=== PATIENT | male | born 1950 | race Caucasian/White ===

== ENCOUNTER 2018-10-02 08:00 | Outpatient (CLI) | payer MEDICARE ==
[2018-10-02 19:20] LABS: CREATININE,URINE 102.9 mg/dL; MICROALBUM/CREATININE RATIO,UR 56.4 ug/mg (<30.0); MICROALBUMIN,URINE 5.8 mg/dL (0-300.0)
[2018-10-02 19:39] LABS: HB2 TOTAL 10.5 g/dL; HEMOGLOBIN A1C 0.51 g/dL; HEMOGLOBIN A1C % 6.6 % (4.6-6.2)
== END 2018-10-02 23:59 | disposition home or self-care (01) ==
LOC: LAB.S 08:00
PROVIDERS: ATTEND Nurse Practitioner
DX: E11.21 Type 2 diabetes mellitus with diabetic nephropathy (principal)
CPT/HCPCS: 36415; 82043; 82570; 83036; 84443

== ENCOUNTER 2018-11-20 08:00 | Outpatient (CLI) | payer MEDICARE | END 2018-11-20 23:59 | disposition home or self-care (01) | LOC: LAB.S 08:00 | PROVIDERS: ATTEND Nurse Practitioner | DX: E03.9 Hypothyroidism, unspecified (principal) | CPT/HCPCS: 36415; 84443 ==

== ENCOUNTER 2018-12-16 17:25 | Outpatient (CLI) | payer MEDICARE, OTHER | END 2018-12-16 17:26 | disposition critical access hospital (66) | LOC: EMS 17:25 | PROVIDERS: ATTEND Surgery | DX: M25.552 Pain in left hip (principal); M79.652 Pain in left thigh; W01.0XXA Fall on same level from slipping, tripping and stumbling without subsequent striking against object, initial encounter; Y93.01 Activity, walking, marching and hiking; Y92.832 Beach as the place of occurrence of the external cause | CPT/HCPCS: A0425; A0429 ==

== ENCOUNTER 2018-12-16 18:05 | Inpatient (IN) | payer MEDICARE, OTHER ==
--- NOTE | 2018-12-16 18:24 | ED Physician Documentation ---
PD HPI LOWER EXT INJURY - Stated complaint Stated Complaint: FALL - Chief complaint Chief Complaint: Ext Problem - History obtained from History obtained from: Patient - History of Present Illness PD HPI LOW EXT INJURY LOCATION: Left (60-year-old gentleman with history of liver transplant, type 2 diabetes on insulin presents after a slip and fall on the beach landing on his left hip with severe pain and cannot walk but declines pain medications. No other injuries.) Review of Systems Ten Systems: 10 systems reviewed and negative Constitutional: reports: Reviewed and negative Throat: reports: Reviewed and negative Cardiac: reports: Reviewed and negative Respiratory: reports: Reviewed and negative PD PAST MEDICAL HISTORY - Past Medical History Past Medical History: Yes GI: Other (liver transplant) - Past Surgical History Past Surgical History: Yes General: Liver surgery - Present Medications Home Medications: Ambulatory Orders Medication Instructions Recorded Confirmed RX: Tacrolimus 2 mg PO BID 02/07/13 12/16/18 Insulin Glargine [Lantus Solostar] 9 units SQ DAILY 12/16/18 12/16/18 Insulin Lispro [Humalog] 10 unit SUBQ ONCE 12/16/18 12/16/18 Levothyroxine [Synthroid] 0 mcg PO QDAC 12/16/18 12/16/18 RX: Lisinopril 0 mg PO DAILY 12/16/18 12/16/18 - Allergies Allergies/Adverse Reactions: Allergies Allergy/AdvReac Type Severity Reaction Status Date / Time No Known Drug Allergies Allergy Verified 02/12/13 14:25 - Social History Does the pt smoke?: No Smoking Status: Never smoker Does the pt drink ETOH?: No Does the pt have substance abuse?: No - Family History Family history: reports: Non contributory - Immunizations Immunizations are current?: Yes - POLST Patient has POLST: No POLST Status: Full Code PD ED PE NORMAL - Vitals Vital signs reviewed: Yes - General General: Alert and oriented X 3, No acute distress - HEENT HEENT: PERRL, EOMI - Neck Neck: Supple, no meningeal sign, No bony TTP - Cardiac Cardiac: RRR, No murmur - Respiratory Respiratory: No respiratory distress, Clear bilaterally - Abdomen Abdomen: Soft, Non tender - Back Back: No CVA TTP, No spinal TTP - Derm Derm: Normal color, Warm and dry - Extremities Extremities: Other (Left hip is not deformed but he appears uncomfortable and is holding it flexed. It is tender. No pelvic or knee tenderness.) - Neuro Neuro: Alert and oriented X 3, Normal speech Results - Vitals Vitals: Vital Signs - 24 hr 12/16/18 12/16/18 18:07 19:45 Temperature 36.9 C Heart Rate 72 71 Respiratory 14 14 Rate Blood Pressure 122/50 L 128/55 L O2 Saturation 100 100 Oxygen O2 Source Room air - EKG (time done) 1918 Rate: Rate (enter#) (65) Rhythm: NSR [place]: Normal Intervals: Normal VT QRS: Low voltage Ischemia: Normal ST segments Computer interpretation: Agree with computer - Labs Labs: Laboratory Tests 12/16/18 12/16/18 12/16/18 18:45 18:45 18:45 WBC 5.5 RBC 3.24 L Hgb 9.9 L Hct 29.2 L MCV 90.2 MCH 30.5 MCHC 33.8 RDW 15.2 H Plt Count 72 L MPV 9.4 Neut # (Auto) 4.8 Lymph # (Auto) 0.3 L Real # (Auto) 0.2 Eos # (Auto) 0.2 Baso # (Auto) 0.1 Absolute Nucleated RBC 0.00 Nucleated RBC % 0.0 PT 14.0 H INR 1.2 Sodium Potassium Chloride Carbon Dioxide Anion Gap BUN Creatinine Estimated GFR (MDRD) Glucose Calcium Total Bilirubin AST ALT Alkaline Phosphatase Total Protein Albumin Globulin Albumin/Globulin Ratio Lipase Blood Type A NEGATIVE Blood Type Recheck Antibody Screen POSITIVE 12/16/18 12/16/18 18:45 18:55 WBC RBC Hgb Hct MCV MCH MCHC RDW Plt Count MPV Neut # (Auto) Lymph # (Auto) Real # (Auto) Eos # (Auto) Baso # (Auto) Absolute Nucleated RBC Nucleated RBC % PT INR Sodium 141 Potassium 4.3 Chloride 110 Carbon Dioxide 22 Anion Gap 9.0 BUN 41 H Creatinine 1.8 H Estimated GFR (MDRD) 38 L Glucose 143 H Calcium 9.5 Total Bilirubin 0.8 AST 22 ALT 23 Alkaline Phosphatase 65 Total Protein 6.7 Albumin 3.8 Globulin 2.9 Albumin/Globulin Ratio 1.3 Lipase 58 H Blood Type Blood Type Recheck A NEGATIVE Antibody Screen - Rads (name of study) L hip xr Radiology: EMP read contemporaneously (Left hip intertrochanteric fracture) PD MEDICAL DECISION MAKING - ED course ED course: 68-year-old gentleman with hip fracture. 10 years post liver transplant. [place] dai injury. Spoke with the hospitalist here as well as anesthesia (Buster) and orthopedic surgeon (Nay). All feel that the surgery can be done here. Patient would like me to touch base with [facility] and get their opinion as well specifically the liver transplant team which I will. I spoke with Dr Arvind Hernandez at [facility] hepatology Who reviewed his chart and did not think there was any reason he needed to be transferred to [facility]. He did recommend the avoidance of hepatotoxic medications. He confirmed that his platelet count and creatinine are basically at his baseline. Departure - Departure Disposition: 66 [facility] DC/Xfer Clinical Impression: Fracture, intertrochanteric, left femur Qualifiers: Encounter type: initial encounter Fracture type: closed Fracture alignment: nondisplaced Qualified Code(s): S72.145A - Nondisplaced intertrochanteric fracture of left femur, initial encounter for closed fracture Condition: Serious Discharge Date/Time: 12/16/18 20:49
[2018-12-16 18:59] LABS: BASOPHILS # (AUTO) 0.1 10^3/uL (0.0-0.1); BASOPHILS % (AUTO) 0.9 %; EOSINOPHILS # (AUTO) 0.2 10^3/uL (0.0-0.7); EOSINOPHILS % (AUTO) 2.8 %; HGB - HEMOGLOBIN 9.9 g/dL (14.0-18.0); LYMPHOCYTES # (AUTO) 0.3 10^3/uL (1.5-3.5); LYMPHOCYTES % (AUTO) 5.6 %; MEAN CORPUSCULAR HEMOGLOBIN 30.5 pg (27.0-31.0); MEAN CORPUSCULAR HGB CONC 33.8 g/dL (32.0-36.0); MEAN CORPUSCULAR VOLUME 90.2 fL (80.0-94.0); MEAN PLATELET VOLUME 9.4 fL (7.4-11.4); MONOCYTES # (AUTO) 0.2 10^3/uL (0.0-1.0); MONOCYTES % (AUTO) 3.7 %; NEUTROPHILS # (AUTO) 4.8 10^3/uL (1.5-6.6); PLT - PLATELET COUNT 72 10^3/uL (130-450); RED BLOOD COUNT 3.24 10^6/uL (4.70-6.10); RED CELL DISTRIBUTION WIDTH 15.2 % (12.0-15.0); WHITE BLOOD COUNT 5.5 x10^3/uL (4.8-10.8)
[2018-12-16 19:03] LABS: INR 1.2 (0.8-1.2)
[2018-12-16] MEDS ORDERED: HYDROmorphone 1 MG/ML CARPUJECT IVP STA (19:07)
[2018-12-16 19:10] LABS: ALBUMIN 3.8 g/dL (3.2-5.5); ALBUMIN/GLOBULIN RATIO 1.3 (1.0-2.2); BILIRUBIN,TOTAL 0.8 mg/dL (0.2-1.0); CALCIUM 9.5 mg/dL (8.5-10.3); CREATININE 1.8 mg/dL (0.6-1.2); TOTAL PROTEIN 6.7 g/dL (6.7-8.2)
--- NOTE | 2018-12-16 19:22 | XRAY Report ---
Reason: hip inj Procedure Date: 12/16/2018 Accession Number: [id number] / [id number] Procedure: XR - Hip w/Pelvis 2-3V LT CPT Code: FULL RESULT: EXAM: LEFT HIP RADIOGRAPHY EXAM DATE: 12/16/2018 06:45 PM. CLINICAL HISTORY: Hip inj. COMPARISON: ABDOMEN ACUTE 02/12/2013 2:49 PM. TECHNIQUE: 2 views. FINDINGS: Bones: There is an intertrochanteric left femoral fracture with mild acquired coxa vara. Bilateral decreased femoral head neck offset. Joints: Mild bilateral hip osteoarthritis Soft Tissues: Soft tissue edema about the left hip IMPRESSION: 1. Left femoral intertrochanteric fracture with mild acquired coxa vera. 2. Bilateral decreased femoral head neck offset which may be seen in the clinical setting of femoral acetabular impingement. RADIA
[2018-12-16] MEDS ORDERED: ACETAMINOPHEN 325 MG TABLET PO PRN (20:23)
[2018-12-16] MEDS ORDERED: HYDROcod/ACETAM 5/325 MG TABLET PO PRN (20:23)
[2018-12-16] MEDS ORDERED: ZOLPIDEM 5 MG TABLET PO PRN (20:23)
[2018-12-16] MEDS ORDERED: ONDANSETRON 4 MG/2 ML VIAL IVP PRN (20:23)
[2018-12-16] MEDS: MORPHINE 2 MG/ML CARPUJECT IVP PRN (21:13)
[2018-12-16] MEDS: SODIUM CHLORIDE FLUSH 0.9% 10 ML SYRINGE IVP PRN (21:13)
[2018-12-16] MEDS: TACROLIMUS 0.5 MG CAPSULE PO SCH (22:09)
[2018-12-16] MEDS: INSULIN REGULAR HUMAN 100 UNIT/1 ML 10 ML MDV SUBQ SCH (22:10)
[2018-12-16] MEDS ORDERED: LIDOCAINE 2% URO-JET 5 ML SYRINGE UR ONE (22:17)
[2018-12-17] MEDS: INSULIN REGULAR HUMAN 100 UNIT/1 ML 10 ML MDV SUBQ SCH ×3 (00:08→12:19)
[2018-12-17] MEDS: SODIUM CHLORIDE FLUSH 0.9% 10 ML SYRINGE IVP SCH ×3 (00:09→17:34)
[2018-12-17] MEDS: SODIUM CHLORIDE FLUSH 0.9% 10 ML SYRINGE IVP PRN ×2 (03:21→06:11)
[2018-12-17] MEDS: MORPHINE 2 MG/ML CARPUJECT IVP PRN ×2 (03:21→20:28)
[2018-12-17] MEDS ORDERED: LACTATED RINGERS 1,000 ML IV SCH (06:00)
[2018-12-17] MEDS: PANTOPRAZOLE 40 MG TABLET PO SCH (06:11)
--- NOTE | 2018-12-17 06:58 | HISTORY & PHYSICAL EXAMINATION ---
DATE OF SERVICE: 12/16/2018 Physician: Farzana Huggins MD CHIEF COMPLAINT: Fall and hip pain. HISTORY OF PRESENT ILLNESS: Patient is a 68-year-old white male with past medical history of liver transplant, on immunosuppressant therapy, with history of insulin-dependent diabetes, hypertension, hypothyroidism and chronic renal failure. He was on a beach picnic during the daytime on 12/16/2018, was walking on the beach, slipped on seaweed, and fell on his left side. He suffered a left intertrochanteric hip fracture, which was shown on x-ray. At the ER, the patient was hemodynamically stable. He had abnormal laboratories including platelet count of 72, creatinine 1.8, hemoglobin 9.9, INR 1.2. He was seen by the ER physician, Dr. Dove, who coordinated his case. He called the orthopedic surgeon, Dr. Tee, who would operate on this patient and schedule surgery for 8:30 in the morning on 12/17/2018. 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 The case was discussed, and Dr. Dove made sure that this patient could be admitted to our critical access hospital. Laboratory results were reviewed and were found in line with recent baseline numbers. Care was also coordinated with the anesthesiologist who is aware and will see the patient. When I interviewed the patient, he reported no prior cardiac workup, no angina- like symptoms. He exercises regularly, goes to the gym twice a week. He never experiences early exertion, unusual fatigue, chest pain or shortness of breath. His liver disease, per his knowledge, is stable. He has regular followup. All his other medical conditions are stable and he knows he has chronic kidney disease. Regarding the circumstances of his fall, he did not report any dizziness, lightheadedness, chest pain, shortness of breath prior to or after the fall. It was a mechanical fall as he described, just slipped on the beach. PAST MEDICAL HISTORY 1. Liver transplant in 2011, on tacrolimus. 2. Diabetes type 2, on insulin. 3. Hypertension. 4. Hypothyroidism. 5. Chronic renal insufficiency. FAMILY HISTORY: Positive for cerebrovascular accident in the father. Negative for liver disease or heart disease. SOCIAL HISTORY: Patient is active, goes to the gym twice a week. He is a nonsmoker. CODE STATUS: FULL CODE. OUTPATIENT MEDICATIONS 1. Tacrolimus. 2. Lisinopril. 3. Insulin Lantus. 4. Levothyroxine. 5. Insulin Lispro. REVIEW OF SYSTEMS: Please see pertinent positives listed above at history of present illness. The patient did not report additional symptoms on the 12- system review. PHYSICAL EXAMINATION VITAL SIGNS: Temperature 36.8 Celsius, heart rate in the 70s, blood pressure 128/55, respiratory rate 18, oxygen saturation 100% on room air. GENERAL: The patient is a well-developed male, who is not in acute distress. MUSCULOSKELETAL: Left hip tenderness. No other injury. CARDIOVASCULAR: S1, S2. regular. LUNGS: Clear to auscultation. No wheezes, no crackles. NEUROLOGIC: Alert, oriented, nonfocal. PSYCHIATRIC: Cooperative. ABDOMEN: Soft, benign, nontender. Bowel sounds present. LYMPHATIC: No lymphedema. DERMATOLOGIC: With pallor. No jaundice. ACTIVE ISSUES/DIAGNOSES 1. Mechanical fall. 2. Left intertrochanteric hip fracture plus reviewing radiology read, an acetabular impingement is described, questionable clinical significance. 3. Status post liver transplant/immunocompromised on tacrolimus. It was discussed with counter clerk farm equipment [employer] that tacrolimus should be continued perioperatively. 4. Chronic renal insufficiency. Creatinine at baseline. 5. Insulin-dependent diabetes with reasonably good glycemic control. 6. Regarding perioperative clearance, no angina-like symptoms, unremarkable EKG with normal sinus rhythm. Therefore, there is no contraindication for the patient to proceed with hip surgery. 7. Multiple chronic medical problems including anemia, thrombocytopenia, renal insufficiency: laboratory results are stable, and this was discussed with the patient's counter clerk farm equipment [employer]. PLAN AND ORDERS 1. Patient is being admitted as inpatient. He will undergo surgery and the case was coordinated with the orthopedic surgeon. We will continue tacrolimus. Preoperatively will hold lisinopril. We will hold long-acting insulin as well and monitor the blood glucose on sliding scale. We will use regular insulin, n.p.o. after midnight. In the morning, we will start IV hydration. Pain control, symptom control. 2. Deep venous thrombosis prophylaxis with Venodyne boots. Notably, the patient has significant thrombocytopenia. Therefore, when he is started on heparin or anticoagulant following hip fracture, platelet numbers should be monitored. 3. Bedrest overnight. After surgery, physical therapy, occupational therapy, and social work consult should be ordered. Prior to discharge should be started on vitamin D and calcium supplements. Likely has osteoporosis. 4. We will continue levothyroxine. 5. FULL CODE. Time spent in the care of this patient was 55 minutes. ATTESTATION: I certify that the reasonable expectation for this patient is to remain hospitalized for more than 48 hours. He is being admitted as inpatient. I certify that the patient will likely discharge or transfer to another facility within 96 hours. TD: 12/17/2018 01:03 MOUNIKA
[2018-12-17] MEDS ORDERED: LEVOTHYROXINE 88 MCG TABLET PO SCH (07:00)
[2018-12-17] MEDS: POLYETHYLENE GLYCOL 3350 17 GM PACKET PO SCH (07:48)
[2018-12-17] MEDS: TACROLIMUS 0.5 MG CAPSULE PO SCH ×2 (07:49→20:28)
[2018-12-17] MEDS ORDERED: ceFAZolin 3 GM in SODIUM CHLORIDE 0.9% 100ML 100 ML IV SCH (08:38)
--- NOTE | 2018-12-17 08:42 | PROVIDER PROGRESS NOTE ---
Subjective - Prog Note Date Prog Note Date: 12/17/18 Prog Note Time: 08:39 - Subjective Pt reports feeling: No change (Patient [facility] a GLF, sliping on wet seaweed on the beach yesterday. Painful hip. No LOC or other injuries) Objective - Vital Signs/Intake & Output Intake & Output: Intake & Output 12/14/18 12/15/18 12/16/18 12/17/18 23:59 23:59 23:59 23:59 Output Total 0 550 Balance 0 -550 - Lab Results Fish Bones: 12/16/18 18:45 12/16/18 18:45 Other Labs: Lab Results x24hrs 12/16/18 12/16/18 12/16/18 Range/Units 18:55 18:45 18:45 WBC (4.8-10.8) x10^3/uL RBC (4.70-6.10) 10^6/uL Hgb (14.0-18.0) g/dL Hct (42.0-52.0) % MCV (80.0-94.0) fL MCH (27.0-31.0) pg MCHC (32.0-36.0) g/dL RDW (12.0-15.0) % Plt Count (130-450) 10^3/uL MPV (7.4-11.4) fL Neut # (Auto) (1.5-6.6) 10^3/uL Lymph # (Auto) (1.5-3.5) 10^3/uL [place] # (Auto) (0.0-1.0) 10^3/uL Eos # (Auto) (0.0-0.7) 10^3/uL Baso # (Auto) (0.0-0.1) 10^3/uL Absolute Nucleated RBC x10^3/uL Nucleated RBC % /100WBC PT 14.0 H (9.9-12.6) secs INR 1.2 (0.8-1.2) Sodium 141 (135-145) mmol/L Potassium 4.3 (3.5-5.0) mmol/L Chloride 110 (101-111) mmol/L Carbon Dioxide 22 (21-32) mmol/L Anion Gap 9.0 (6-13) BUN 41 H (6-20) mg/dL Creatinine 1.8 H (0.6-1.2) mg/dL Estimated GFR (MDRD) 38 L (>89) Glucose 143 H (70-100) mg/dL Calcium 9.5 (8.5-10.3) mg/dL Total Bilirubin 0.8 (0.2-1.0) mg/dL AST 22 (10-42) IU/L ALT 23 (10-60) IU/L Alkaline Phosphatase 65 (42-121) IU/L Total Protein 6.7 (6.7-8.2) g/dL Albumin 3.8 (3.2-5.5) g/dL Globulin 2.9 (2.1-4.2) g/dL Albumin/Globulin Ratio 1.3 (1.0-2.2) Lipase 58 H (22-51) U/L Blood Type Blood Type Recheck A NEGATIVE Antibody Screen Antibody Identification 12/16/18 12/16/18 Range/Units 18:45 18:45 WBC 5.5 (4.8-10.8) x10^3/uL RBC 3.24 L (4.70-6.10) 10^6/uL Hgb 9.9 L (14.0-18.0) g/dL Hct 29.2 L (42.0-52.0) % MCV 90.2 (80.0-94.0) fL MCH 30.5 (27.0-31.0) pg MCHC 33.8 (32.0-36.0) g/dL RDW 15.2 H (12.0-15.0) % Plt Count 72 L (130-450) 10^3/uL MPV 9.4 (7.4-11.4) fL Neut # (Auto) 4.8 (1.5-6.6) 10^3/uL Lymph # (Auto) 0.3 L (1.5-3.5) 10^3/uL [place] # (Auto) 0.2 (0.0-1.0) 10^3/uL Eos # (Auto) 0.2 (0.0-0.7) 10^3/uL Baso # (Auto) 0.1 (0.0-0.1) 10^3/uL Absolute Nucleated RBC 0.00 x10^3/uL Nucleated RBC % 0.0 /100WBC PT (9.9-12.6) secs INR (0.8-1.2) Sodium (135-145) mmol/L Potassium (3.5-5.0) mmol/L Chloride (101-111) mmol/L Carbon Dioxide (21-32) mmol/L Anion Gap (6-13) BUN (6-20) mg/dL Creatinine (0.6-1.2) mg/dL Estimated GFR (MDRD) (>89) Glucose (70-100) mg/dL Calcium (8.5-10.3) mg/dL Total Bilirubin (0.2-1.0) mg/dL AST (10-42) IU/L ALT (10-60) IU/L Alkaline Phosphatase (42-121) IU/L Total Protein (6.7-8.2) g/dL Albumin (3.2-5.5) g/dL Globulin (2.1-4.2) g/dL Albumin/Globulin Ratio (1.0-2.2) Lipase (22-51) U/L Blood Type A NEGATIVE Blood Type Recheck Antibody Screen POSITIVE Antibody Identification Anti-Fya - Diagnostic Imaging Diagnostic Imaging Comments: XR show left IT hip fracture - impacted - Other Results/Comments Other Results/Comments: EXAM: 1+ tender over lateral left hip; painful hip motion. Moves toes well. Sensation intact. Good cap filling Assessment/Plan - Problem List (1) Fracture, intertrochanteric, left femur Impression: Closed, impacted left IT hip fracture. Hx of liver transplant PLAN: After medical and anesthesia clearance, will plan to proceed with fracture stabilization with short interTan nailing of fracture. Risk an d benefits of surgery explained; questions answered. He wishes to proceed as planned. Leg marked. Consent signed. Qualifiers: Encounter type: initial encounter Fracture type: closed Fracture alignment: nondisplaced Qualified Code(s): S72.145A - Nondisplaced intertrochanteric fracture of left femur, initial encounter for closed fracture
--- NOTE | 2018-12-17 09:08 | ANESTHESIA ---
Pre-Anesthesia VS, & Labs - Diagnosis left hip fracture - Procedure left hip nailing Vital Signs: Temp Pulse Resp BP Pulse Ox 36.7 C 75 17 130/53 L 99 12/16/18 23:23 12/16/18 23:23 12/16/18 23:23 12/16/18 23:23 12/16/18 23:23 Height 5 ft 10 in Weight (kg) 75.5 kg Body Mass Index 23.8 - NPO >8 hours - Lab Results Current Lab Results: Laboratory Tests 12/16/18 18:55: Blood Type Recheck A NEGATIVE 12/16/18 18:45: Sodium 141, Potassium 4.3, Chloride 110, Carbon Dioxide 22, Anion Gap 9.0, BUN 41 H, Creatinine 1.8 H, Estimated GFR (MDRD) 38 L, Glucose 143 H, Calcium 9.5, Total Bilirubin 0.8, AST 22, ALT 23, Alkaline Phosphatase 65, Total Protein 6.7, Albumin 3.8, Globulin 2.9, Albumin/Globulin Ratio 1.3, Lipase 58 H 12/16/18 18:45: PT 14.0 H, INR 1.2 12/16/18 18:45: WBC 5.5, RBC 3.24 L, Hgb 9.9 L, Hct 29.2 L, MCV 90.2, MCH 30.5, MCHC 33.8, RDW 15.2 H, Plt Count 72 L, MPV 9.4, Neut # (Auto) 4.8, Lymph # (Auto) 0.3 L, [place] # (Auto) 0.2, Eos # (Auto) 0.2, Baso # (Auto) 0.1, Absolute Nucleated RBC 0.00, Nucleated RBC % 0.0 12/16/18 18:45: Blood Type A NEGATIVE, Antibody Screen POSITIVE, Antibody Identi fication Anti-Fya Fish Bones: 12/16/18 18:45 12/16/18 18:45 Home Medications and Allergies Home Medications: Ambulatory Orders Insulin Glargine [Lantus Solostar] 9 units SUBQ QPM 12/16/18 Insulin Lispro [Humalog] 6 unit SUBQ TIDWM 12/16/18 Calcium Citrate 250 mg PO DAILY 12/17/18 Levothyroxine Sodium 37.5 mcg PO QDAC 12/17/18 Lisinopril 2.5 mg PO DAILY 12/17/18 Multivitamin [Theragran] 1 tab PO DAILY 12/17/18 Tacrolimus [Prograf] 0.5 mg PO Q12H 12/17/18 Active Medications Acetaminophen (Tylenol) 650 mg PO Q4HR PRN PRN Reason: Pain 1 to 4 Hydrocodone Bitart/Acetaminophen (Mertzon 5/325) 1 tab PO Q4HR PRN PRN Reason: Pain 5 to 7 Last Admin: 12/17/18 00:09 Dose: 1 tab Lactated Ringer's (Lr) 1,000 mls @ 75 mls/hr IV .[id number] [facility] Stop: 12/17/18 12:39 Last Admin: 12/17/18 06:11 Dose: 75 mls/hr Cefazolin Sodium 3 gm/ Sodium (Chloride) 100 mls @ 200 mls/hr IV ONCE [facility] Stop: 12/17/18 11:00 Insulin Human Regular (Novolin R) 1 - 5 unit SUBQ Q6HR [facility]; Protocol Last Admin: 12/17/18 06:09 Dose: Not Given Levothyroxine Sodium (Synthroid) 88 mcg PO QDAC [facility] Last Admin: 12/17/18 06:11 Dose: 88 mcg Morphine Sulfate (Morphine (Carpuject)) 4 mg IVP Q4HR PRN PRN Reason: Pain 8 to 10 Last Admin: 12/17/18 03:21 Dose: 4 mg Ondansetron HCl (Zofran Inj) 4 mg IVP Q6HR PRN PRN Reason: Nausea / Vomiting Pantoprazole Sodium (Protonix) 40 mg PO QDAC [facility] Last Admin: 12/17/18 06:11 Dose: 40 mg Polyethylene Glycol (Miralax) 17 gm PO DAILY [facility] Last Admin: 12/17/18 07:48 Dose: Not Given Sodium Chloride (Normal Saline Flush 0.9%) 10 ml IVP PRN PRN PRN Reason: NEEDED PER PROVIDER ORDERS Last Admin: 12/17/18 06:11 Dose: 10 ml Sodium Chloride (Normal Saline Flush 0.9%) 10 ml IVP 0100,0900,1700 [facility] Last Admin: 12/17/18 07:47 Dose: Not Given Tacrolimus (Prograf) 2 mg PO BID [facility] Last Admin: 12/17/18 07:49 Dose: 0.5 mg Zolpidem Tartrate (Ambien) 5 mg PO QPM PRN PRN Reason: Insomnia Insulin Glargine [Lantus Solostar] 9 units SUBQ QPM 12/16/18 Insulin Lispro [Humalog] 6 unit SUBQ TIDWM 12/16/18 Calcium Citrate 250 mg PO DAILY 12/17/18 Levothyroxine Sodium 37.5 mcg PO QDAC 12/17/18 Lisinopril 2.5 mg PO DAILY 12/17/18 Multivitamin [Theragran] 1 tab PO DAILY 12/17/18 Tacrolimus [Prograf] 0.5 mg PO Q12H 12/17/18 Allergies/Adverse Reactions: Allergies Allergy/AdvReac Type Severity Reaction Status Date / Time No Known Drug Allergies Allergy Verified 02/12/13 14:25 Anes History & Medical History - Anesthetic History Anesthesia Complications: reports: No previous complications Family history of Anesthesia Complications: Denies Family history of Malignant Hyperthermia: Denies - Medical History Cardiovascular: reports: None Pulmonary: reports: None Gastrointestinal: reports: Other (liver transplant) Urinary: reports: Benign prostate hypertrophy Neuro: reports: None Musculoskeletal: reports: None Endocrine/Autoimmune: reports: Type 2 diabetes Blood Disorders: reports: Anemia Skin: reports: None Smoking Status: Never smoker Other Past Medical History: Stool incontience - Surgical History General: Liver surgery Exam General: Alert Dental: WNL Mouth Openin Fingerbreadth Neck Mobility: Reduced Mallampati classification: IV Thyromental Distance: 4-6 cm Respiratory: Lungs clear, Normal breath sounds, No respiratory distress, No accessory muscle use Cardiovascular: Regular rate, Normal S1, Normal S2, No murmurs Plan Anesthesia Type: General Consent for Procedure(s) Verified and Reviewed: Yes Code Status: Attempt Resuscitation ASA classification: 3-Severe systemic disease Is this case an emergency?: No
[2018-12-17] MEDS ORDERED: LACTATED RINGERS 1,000 ML IV ONE ×2 (09:30→11:02)
--- NOTE | 2018-12-17 09:48 | CONSULTATION NOTE ---
DATE OF SERVICE: 12/17/2018 Physician: Elroy Tee MD REFERRING PHYSICIAN: Bertin Dove MD, Emergency Room Department. CHIEF COMPLAINT: "My left hip hurts." HISTORY OF PRESENT ILLNESS: Ludwig Jordan is a 68-year-old male who apparently slipped w hile walking on the beach yesterday afternoon, landing on his left side. He noted immediate pain and mild deformity to the leg. He was unable to stand or weight bear due to pain. He was taken by sal lino to the Emergency Room here at [facility], where x-rays revealed his impacted left intertrochanteric hip fracture. The patient denied any loss of consciousness or other injuries. No prior hip fractures noted. MEDICAL HISTORY: Medical history was most notable for prior hip transplant due to hepatic failure of unknown etiology, per patient. He has done well however, over the years since his transplant. PHYSICAL EXAMINATION: EXTREMITY: The patient appears to be lying in bed, reasonably comfortable with his left hip flexed. There is painful motion at the hip when we try to extend the joint. The patient moves his toes well on command. Sensation appears to be intact throughout. Good capillary filling of the digits noted. IMAGES: Review of x-rays were taken shows the impacted left intertrochanteric hip fracture present. ASSESSMENT: 1. Closed impacted left intertrochanteric hip fracture. 2. History of hepatic transplant in the past - currently on immunosuppressive drugs chronically and has done well postoperatively. PLAN: After a medical evaluation and stabilization, we will plan on proceeding with surgical stabili zation of his fracture. We plan on doing a short Intertan nailing Tuesday. The risks and noemi efits of surgery were explained to the patient, including anesthesia risks, infection, blood loss, ne rve damage, fracture, malunion, nonunion, blood clots, etc. The patient's questions were answered. He appears to understand the options and wishes to proceed with surgery as planned. Leg had been mar ked and consent signed. TD: 12/17/2018 08:54
[2018-12-17] MEDS ORDERED: BUPIVACAINE 0.25%-EPI 1:200000 PF 10 ML VIAL SUBQ ONE ×2 (10:19)
[2018-12-17] MEDS ORDERED: BUPIVACAINE 0.25%-EPI 1:200000 PF 30 ML VIAL ONE (10:25)
[2018-12-17] MEDS ORDERED: DOCUSATE SODIUM 100 MG CAPSULE PO PRN (10:47)
[2018-12-17] MEDS ORDERED: PROCHLORPERAZINE 10 MG/2 ML VIAL IVP PRN (10:47)
[2018-12-17] MEDS ORDERED: SENNA 8.6 MG TABLET PO PRN (10:47)
[2018-12-17] MEDS ORDERED: ONDANSETRON 4 MG/2 ML VIAL IVP PRN (10:47)
--- NOTE | 2018-12-17 10:47 | OPERATIVE REPORT ---
Operative Report - General Admit Date: 12/16/18 Procedure Date: 12/17/18 Planned Procedure: Closed reductioin and short interTan nailing of left hip fracture Pre-Op Diagnosis: Closed, impacted left intertrochanteric hip fracture Procedure Performed: Closed reduction and short interTan nailing of left hip fracture Post Op Diagnosis: Same - Procedure Note Primary Surgeon: Ansley Tee MD Anesthesia Provider: Daly Escamilla MD Anesthesia Technique: General LMA IV Fluids (mL): 900 Estimated Blood Loss (mL): 200 Complications: None
[2018-12-17] MEDS ORDERED: PROPOFOL 200 MG/20 ML VIAL IVP ONE (10:52)
[2018-12-17] MEDS ORDERED: ONDANSETRON 4 MG/2 ML VIAL IVP ONE (10:52)
[2018-12-17] MEDS ORDERED: ePHEDrine 50 MG/ML VIAL IVP ONE (10:52)
[2018-12-17] MEDS ORDERED: KETOROLAC 30 MG/ML VIAL IVP ONE (10:52)
[2018-12-17] MEDS ORDERED: CEFAZOLIN SODIUM IN 0.9 % NACL 2 GM/100 ML BAG IV ONE (10:52)
[2018-12-17] MEDS ORDERED: LIDOCAINE-MPF 2% 5 ML VIAL IM ONE (10:52)
[2018-12-17] MEDS ORDERED: fentaNYL 100 MCG/2 ML VIAL IVP ONE (10:52)
[2018-12-17] MEDS ORDERED: HYDROmorphone 0.5 MG/0.5 ML SYRINGE ONE (11:06)
[2018-12-17] MEDS: SODIUM CHLORIDE 0.9% 1,000 ML IV SCH ×2 (11:43→22:20)
--- NOTE | 2018-12-17 12:10 | OPERATIVE REPORT ---
DATE OF SERVICE: 12/17/2018 Physician: Elroy Tee MD PREOPERATIVE DIAGNOSIS: Closed, impacted left intertrochanteric hip fracture. POSTOPERATIVE DIAGNOSIS: Closed, impacted left intertrochanteric hip fracture. PROCEDURE PERFORMED: Closed reduction and short InterTan nailing of left hip fracture. SURGEON: Elroy Tee MD ANESTHESIA: General with an LMA performed by Dr. Vahid Hoffman MD DESCRIPTION OF PROCEDURE: The patient was taken to the operating room on the morning of 12/17/2018, where he was placed under a general anesthetic in supine position without any complications. He was then positioned supine on the fracture table. The un fractured right leg was then flexed and widely abducted and held with a well leg gomes. The fractured left lower extremity was then placed in the axial traction with the leg internally rotated about 30 degrees. Fluoroscopic views of the left hip showed a good nearly anatomical reduction of his intertrochanteric hip fracture. We could visualize the proximal femur and femoral head well in both AP and lateral projections. We then prepped and draped the lateral aspect of the left hip and proximal thigh in the usual fashion for our procedure. Making a short oblique incision just proximal to the tip of the greater trochanter, we dissected down to the greater trochanter. This was where we placed the tip of the threaded guidewire from our nailing set. The fluoroscopic view showed the guide pin to be at a good start point. We then proceeded to advance this pin under power through the proximal femur down just past the level of the lesser trochanter. Fluoroscopic view in AP and lateral projection showed good placement of our guide pin. We then used the 60 mm channel reamer and reamed the proximal femur over our inserted guide pin. Reamer and guide pin was then removed from the femur. We then proceeded to insert a short InterTan nail which had been placed on our insertion apparatus. This was a 10 mm x 18 cm x 125 degree angled InterTan nail. This was inserted manually and then tapped into place with a mallet until we had proper depth of penetration for our nail. Satisfied with this, we then proceeded to make small skin incisions laterally in the thigh, placed the oval drill sleeve into the distal end of our insertion guide, and proceeded to place the pin guide within our drill sleeve. Under power, we then advanced the threaded-tipped guidewire through the pin guide up through the proximal femur, femoral neck, and femoral head. Fluoroscopic view showed that our guide pin was in proper position both in AP and lateral projections and to within about 2 mm of the subchondral bone. We then removed our pin guide and proceeded to ream the proximal femur and femoral head with our cannulated reamer. We then followed up with the selected subtrochanteric hip lag screw, which measured 105 mm in length x 11 mm in diameter. This was inserted manually. Fluoroscopic views were then used to check on the course of our hip lag screw, and this was advanced until the screw was within about 3 mm of the subchondral bone in both AP and lateral projections. Satisfied with this, we then removed our insertion apparatus for a hip lag screw. We locked the proximal screw in our nail using the hinged screwdriver, tightening the set screw snugly and then backing it off by 90 degrees. Next we then inserted our silver and gold drill sleeves through the static hole in the distal end of our insertion apparatus. Through a small skin incision, we advanced the drill sleeve to the lateral femoral cortex. We then proceeded to use the 4 mm drill bit and drilling both the medial and lateral cortices of the femoral shaft, using our drill guides. Fluoroscopic views showed that we had penetrated a few millimeters beyond the medial femoral cortex. Measurement indicated we would use a 35 x 5 mm distal locking screw. After removing the drill sleeve and the silver inner drill sleeve and drill bit, we then proceeded to insert the selected distal locking screw into place. As the screw did set, we did hear an audible click from the femoral shaft. Multiple views taken to the distal end of our nail and the femoral shaft in AP, lateral, and oblique views showed no visible fracture at the level of the distal end of our nail or at the distal locking screw. It was determined that we were satisfactory condition. The cracking noise may have been from the seating of our screw, so we did back the screw off a quarter of a turn. Again, multiple views of the distal nail and screw showed no fractures in the femoral shaft. We then proceeded to get permanent views of both the AP and lateral projections of the distal end of our nail, and AP and lateral of the hip showing all the hip hardware, and showed a good reduction maintained of our hip fracture. We then removed the insertion apparatus from the nail. We then irrigated the wounds out thoroughly with saline. I proceeded to close the wound in layers using 0 Polysorb to approximate the fascia carlos alberto incision; buried simple stitches of 2-0 Polysorb to approximate the subcutaneous tissues in the proximal and mid incision; skin mery used to approximate all the skin edges of the three wounds. About 12 mL of 0.25% Marcaine with epinephrine was used to provide local anesthesia of our skin incisions. We then dressed the wounds and transferred the patient off the fracture table onto his bed. He was taken to recovery room in satisfactory condition. ESTIMATED BLOOD LOSS: 200 mL REPLACEMENT: 900 mL crystalloid. INTRAOPERATIVE COMPLICATIONS: None. PLAN: The patient will be advanced to physical therapy, weightbearing as tolerated on the left lower extremity with walker ambulation. He will begin therapy, then on the first postoperative day. TD: 12/17/2018 11:04 MOUNIKA
--- NOTE | 2018-12-17 13:00 | XRAY Report ---
Reason: FX LEFT HIP Procedure Date: 12/17/2018 Accession Number: [id number] / [id number] Procedure: [place] - OR C-Arm Procedure CPT Code: FULL RESULT: EXAM: FLUOROSCOPIC GUIDANCE EXAM DATE: 12/17/2018 11:01 AM. CLINICAL HISTORY: FX LEFT HIP. COMPARISON: HIP W/PELVIS 2-3V LT 12/16/2018 6:22 PM. FINDINGS: Intraoperative fluoroscopic spot images show reduction and internal fixation of the previously seen intertrochanteric left hip fracture. Please see operative report for additional detail. IMPRESSION: Fluoroscopic guidance provided for Dr. Elroy Tee. Total fluoroscopy time: 31 seconds. Number of images: 5. RADIA
--- NOTE | 2018-12-17 13:00 | XRAY Report ---
Reason: FX LEFT HIP Procedure Date: 12/17/2018 Accession Number: [id number] / [id number] Procedure: XR - Hip w/Pelvis 2-3V LT CPT Code: FULL RESULT: EXAM: FLUOROSCOPIC GUIDANCE EXAM DATE: 12/17/2018 11:01 AM. CLINICAL HISTORY: FX LEFT HIP. COMPARISON: HIP W/PELVIS 2-3V LT 12/16/2018 6:22 PM. FINDINGS: Intraoperative fluoroscopic spot images show reduction and internal fixation of the previously seen intertrochanteric left hip fracture. Please see operative report for additional detail. IMPRESSION: Fluoroscopic guidance provided for Dr. Elroy Tee. Total fluoroscopy time: 31 seconds. Number of images: 5. RADIA
--- NOTE | 2018-12-17 13:32 | PROVIDER PROGRESS NOTE ---
Assessment/Plan - Problem List (1) Fracture, intertrochanteric, left femur Qualifiers: Encounter type: initial encounter Fracture type: closed Fracture alignment: nondisplaced Qualified Code(s): S72.145A - Nondisplaced inte rtrochanteric fracture of left femur, initial encounter for closed fracture Assessment/Plan: Patient was cleared for surgery and taken for successful hip pinning by Ortho this morning. There was 200 cc of blood loss, reported to me by Dr Tee. He had type and crossmatch ordered, in case transfusion is needed. H/H monitoring daily for 2 days was ordered by the Orthopod. Today is postop day # 0. He will start PT tomorrow. (2) Fall Qualifiers: Encounter type: subsequent encounter Qualified Code(s): W19.XXXD - Unspecified fall, subsequent encounter Assessment/Plan: This was a mechanical fall, he slipped on a slippery [place] There was no dizziness, no syncope. (3) CKD (chronic kidney disease) Assessment/Plan: Creatinine is at baseline. Monitor BMP daily. (4) Liver transplant recipient Assessment/Plan: Yesterday the ER spoke to a Marketing Technology Specialist at to review his current status, it was okayed for him to remain here for management of the fracture. LFTs are stable. His Tacrolimus will be continued. The patient has taken Tylenol in the past, is OK to use Acetaminophen for pain control. IV Ofirmev was ordered for pain control. (5) DM type 2 (diabetes mellitus, type 2) Assessment/Plan: Continue carb controlled diet, fingerstick glucose checks, sliding scale insulin coverage. (6) Anemia Assessment/Plan: He is only on a multivitamin daily. He may have anemia of chronic disease (CKD). We will order iron studies, B12 and folate levels and replace if low. Monitor H/H daily, as described above. (7) Thrombocytopenia Assessment/Plan: This may have been the reason for the "oozing" that was described by the orthopedic surgeon while doing his surgery today. Continue to monitor his platelets daily. (8) Hypothyroidism Assessment/Plan: The patient's usual Synthroid dose was continued while here. - Current Meds Current Meds: Current Medications Generic Name Dose Route Start Last Admin Trade Name Freq PRN Reason Stop Dose Admin Sodium Chloride 1,000 mls @ 100 mls/hr 12/17/18 11:00 12/17/18 11:43 Normal Saline 0.9% IV 100 mls/hr .Q10H PARVIZ Administration Insulin Human Regular 1 - 5 unit 12/16/18 21:00 12/17/18 12:19 Novolin R SUBQ 2 unit Q6HR PARVIZ Administration Protocol Pantoprazole Sodium 40 mg 12/17/18 07:00 12/17/18 06:11 Protonix PO 40 mg QDAC PARVIZ Administration Polyethylene Glycol 17 gm 12/17/18 09:00 12/17/18 07:48 Miralax PO Not Given DAILY PARVIZ - Lab Result Fish Bone Diagrams: 12/16/18 18:45 12/16/18 18:45 - Additional Planning My Orders: My Active Orders 12/17/18 21:00 Tacrolimus [Prograf] 0.5 mg PO Q12H 12/18/18 05:00 CMP [COMPREHENSIVE METABOLIC PANEL] [CHEM] DAILYLAB 12/18/18 07:00 Levothyroxine [Synthroid] 37.5 mcg PO QDAC 12/18/18 09:00 Calcium Citrate 250 mg PO DAILY Multivitamin [Theragran] 1 tab PO DAILY 12/19/18 05:00 CMP [COMPREHENSIVE METABOLIC PANEL] [CHEM] DAILYLAB 12/20/18 05:00 CMP [COMPREHENSIVE METABOLIC PANEL] [CHEM] DAILYLAB Subjective - Subjective Patient Reports: Resting Comfortably Objective Vital Signs: Vital Signs - 24 hr 12/16/18 12/16/18 12/16/18 18:07 19:45 21:00 Temperature 36.9 C 36.8 C Heart Rate 72 71 Heart Rate [ 79 Brachial] Respiratory 14 14 18 Rate Blood Pressure 122/50 L 128/55 L Blood Pressure [Left Brachial artery] Blood Pressure 127/59 L [Right Brachial artery] O2 Saturation 100 100 99 12/16/18 12/17/18 12/17/18 23:23 10:45 10:50 Temperature 36.7 C 37.3 C Heart Rate 81 77 Heart Rate [ 75 Brachial] Respiratory 17 17 10 L Rate Blood Pressure 148/73 H 137/54 H Blood Pressure [Left Brachial artery] Blood Pressure 130/53 L [Right Brachial artery] O2 Saturation 99 97 96 12/17/18 12/17/18 12/17/18 10:55 11:02 11:07 Temperature 37.3 C Heart Rate 79 82 77 Heart Rate [ Brachial] Respiratory 14 16 11 L Rate Blood Pressure 140/53 H 138/49 H 135/53 H Blood Pressure [Left Brachial artery] Blood Pressure [Right Brachial artery] O2 Saturation 100 100 100 12/17/18 12/17/18 12/17/18 11:12 11:17 11:21 Temperature 37.4 C 37.2 C Heart Rate 76 81 76 Heart Rate [ Brachial] Respiratory 13 20 14 Rate Blood Pressure 134/51 H 136/51 H 112/52 L Blood Pressure [Left Brachial artery] Blood Pressure [Right Brachial artery] O2 Saturation 100 96 98 12/17/18 12/17/18 12/17/18 11:30 12:00 12:06 Temperature 37.2 C 36.5 C 37.2 C Heart Rate Heart Rate [ 78 82 78 Brachial] Respiratory 18 18 18 Rate Blood Pressure Blood Pressure 129/49 L 125/44 L 129/49 L [Left Brachial artery] Blood Pressure [Right Brachial artery] O2 Saturation 95 95 95 12/17/18 13:00 Temperature 36.6 C Heart Rate Heart Rate [ 76 Brachial] Respiratory 16 Rate Blood Pressure Blood Pressure 119/44 L [Left Brachial artery] Blood Pressure [Right Brachial artery] O2 Saturation 93 Oxygen O2 Source Room air I&O (Last 24 Hrs): Intake and Output Totals x24h 12/15/18 12/16/18 12/17/18 23:59 23:59 23:59 Intake Total 0 Output Total 0 550 Balance 0 -550 General: Alert, Oriented x3 HEENT: Mucous membr. moist/pink, Other (PAle) Neck: Supple, No JVD Neuro: Non Focal Cardiovascular: Regular rate Respiratory: No respiratory distress Abdomen: Soft Extremities: No edema - Results Results: Laboratory Results WBC 5.5 x10^3/uL (4.8-10.8) 12/16/18 18:45 RBC 3.24 10^6/uL (4.70-6.10) L 12/16/18 18:45 Hgb 9.9 g/dL (14.0-18.0) L 12/16/18 18:45 Hct 29.2 % (42.0-52.0) L 12/16/18 18:45 MCV 90.2 fL (80.0-94.0) 12/16/18 18:45 MCH 30.5 pg (27.0-31.0) 12/16/18 18:45 MCHC 33.8 g/dL (32.0-36.0) 12/16/18 18:45 RDW 15.2 % (12.0-15.0) H 12/16/18 18:45 Plt Count 72 10^3/uL (130-450) L 12/16/18 18:45 MPV 9.4 fL (7.4-11.4) 12/16/18 18:45 Neut # (Auto) 4.8 10^3/uL (1.5-6.6) 12/16/18 18:45 Lymph # (Auto) 0.3 10^3/uL (1.5-3.5) L 12/16/18 18:45 [place] # (Auto) 0.2 10^3/uL (0.0-1.0) 12/16/18 18:45 Eos # (Auto) 0.2 10^3/uL (0.0-0.7) 12/16/18 18:45 Baso # (Auto) 0.1 10^3/uL (0.0-0.1) 12/16/18 18:45 Absolute Nucleated RBC 0.00 x10^3/uL 12/16/18 18:45 Nucleated RBC % 0.0 /100WBC 12/16/18 18:45 PT 14.0 secs (9.9-12.6) H 12/16/18 18:45 INR 1.2 (0.8-1.2) 12/16/18 18:45 Sodium 141 mmol/L (135-145) 12/16/18 18:45 Potassium 4.3 mmol/L (3.5-5.0) 12/16/18 18:45 Chloride 110 mmol/L (101-111) 12/16/18 18:45 Carbon Dioxide 22 mmol/L (21-32) 12/16/18 18:45 Anion Gap 9.0 (6-13) 12/16/18 18:45 BUN 41 mg/dL (6-20) H 12/16/18 18:45 Creatinine 1.8 mg/dL (0.6-1.2) H 12/16/18 18:45 Estimated GFR (MDRD) 38 (>89) L 12/16/18 18:45 Glucose 143 mg/dL (70-100) H 12/16/18 18:45 Calcium 9.5 mg/dL (8.5-10.3) 12/16/18 18:45 Total Bilirubin 0.8 mg/dL (0.2-1.0) 12/16/18 18:45 AST 22 IU/L (10-42) 12/16/18 18:45 ALT 23 IU/L (10-60) 12/16/18 18:45 Alkaline Phosphatase 65 IU/L (42-121) 12/16/18 18:45 Total Protein 6.7 g/dL (6.7-8.2) 12/16/18 18:45 Albumin 3.8 g/dL (3.2-5.5) 12/16/18 18:45 Globulin 2.9 g/dL (2.1-4.2) 12/16/18 18:45 Albumin/Globulin Ratio 1.3 (1.0-2.2) 12/16/18 18:45 Lipase 58 U/L (22-51) H 12/16/18 18:45 Blood Type A NEGATIVE 12/16/18 18:45 Blood Type Recheck A NEGATIVE 12/16/18 18:55 Antibody Screen POSITIVE 12/16/18 18:45 Antibody Identification Anti-Fya 12/16/18 18:45
[2018-12-17] MEDS: ASPIRIN 325 MG TABLET PO SCH (17:30)
[2018-12-17] MEDS: ceFAZolin 2 GM in SODIUM CHLORIDE 0.9% MINIBAG 100 ML IV SCH (17:30)
[2018-12-17] MEDS: INSULIN ASPART 300 UNIT/3 ML PEN SUBQ SCH ×2 (17:30→21:44)
[2018-12-17] MEDS: oxyCODONE 5 MG TABLET PO PRN (23:45)
[2018-12-18] MEDS: ceFAZolin 2 GM in SODIUM CHLORIDE 0.9% MINIBAG 100 ML IV SCH (01:08)
[2018-12-18] MEDS: SODIUM CHLORIDE FLUSH 0.9% 10 ML SYRINGE IVP SCH ×3 (01:09→16:57)
[2018-12-18] MEDS: oxyCODONE 5 MG TABLET PO PRN ×2 (04:35→08:17)
[2018-12-18 05:47] LABS: BASOPHILS % (AUTO) 0.4 %; EOSINOPHILS # (AUTO) 0.1 10^3/uL (0.0-0.7); EOSINOPHILS % (AUTO) 2.9 %; HGB - HEMOGLOBIN 7.2 g/dL (14.0-18.0); LYMPHOCYTES # (AUTO) 0.1 10^3/uL (1.5-3.5); LYMPHOCYTES % (AUTO) 7.3 %; MEAN CORPUSCULAR HEMOGLOBIN 30.6 pg (27.0-31.0); MEAN CORPUSCULAR HGB CONC 33.3 g/dL (32.0-36.0); MEAN CORPUSCULAR VOLUME 91.9 fL (80.0-94.0); MEAN PLATELET VOLUME 9.8 fL (7.4-11.4); MONOCYTES # (AUTO) 0.1 10^3/uL (0.0-1.0); MONOCYTES % (AUTO) 7.2 %; NEUTROPHILS # (AUTO) 1.6 10^3/uL (1.5-6.6); NEUTROPHILS % (AUTO) 82.2 %; RED BLOOD COUNT 2.35 10^6/uL (4.70-6.10); RED CELL DISTRIBUTION WIDTH 15.4 % (12.0-15.0)
[2018-12-18 05:51] LABS: PLT - PLATELET COUNT 33 10^3/uL (130-450); WHITE BLOOD COUNT 1.9 x10^3/uL (4.8-10.8)
[2018-12-18 06:01] LABS: ALBUMIN 2.9 g/dL (3.2-5.5); ALBUMIN/GLOBULIN RATIO 1.2 (1.0-2.2); BILIRUBIN,TOTAL 0.5 mg/dL (0.2-1.0); CALCIUM 7.9 mg/dL (8.5-10.3); CREATININE 1.8 mg/dL (0.6-1.2); TOTAL PROTEIN 5.4 g/dL (6.7-8.2)
[2018-12-18 06:04] LABS: HB2 TOTAL 7.5 g/dL; HEMOGLOBIN A1C 0.41 g/dL; HEMOGLOBIN A1C % 7.2 % (4.6-6.2)
[2018-12-18 06:09] LABS: % IRON SATURATION 7 % (20-50); IRON 12 ug/dL (45-182); TOTAL IRON BINDING CAPACITY 171 ug/dL (250-450); TRANSFERRIN 122 mg/dL (180-329)
[2018-12-18 06:18] LABS: PLATELET ESTIMATE, MANUAL DECREASED (<130,000) (NORMAL); PLATELET MORPHOLOGY NORMAL APPEARANCE (NORMAL); RBC MORPHOLOGY (MULTIPLE) NORMAL APPEARANCE (NORMAL)
[2018-12-18] MEDS: LEVOTHYROXINE 25 MCG TABLET PO SCH (06:38)
[2018-12-18] MEDS: PANTOPRAZOLE 40 MG TABLET PO SCH (06:39)
[2018-12-18] MEDS: ASPIRIN 325 MG TABLET PO SCH ×2 (08:08→08:09)
[2018-12-18] MEDS: CALCIUM CITRATE 250 MG TABLET PO SCH (08:08)
[2018-12-18] MEDS: MULTIVITAMIN TABLET PO SCH ×2 (08:08→08:09)
[2018-12-18] MEDS: TACROLIMUS 0.5 MG CAPSULE PO SCH ×2 (08:08→20:29)
[2018-12-18] MEDS: INSULIN ASPART 300 UNIT/3 ML PEN SUBQ SCH ×6 (08:12→20:49)
[2018-12-18] MEDS: POLYETHYLENE GLYCOL 3350 17 GM PACKET PO SCH (08:13)
[2018-12-18] MEDS: SODIUM CHLORIDE 0.9% 1,000 ML IV SCH (08:18)
--- NOTE | 2018-12-18 08:24 | PROVIDER PROGRESS NOTE ---
Assessment/Plan - Problem List (1) Fracture, intertrochanteric, left femur Qualifiers: Encounter type: initial encounter Fracture type: closed Fracture alignment: nondisplaced Qualified Code(s): S72.145A - Nondisplaced inte rtrochanteric fracture of left femur, initial encounter for closed fracture Assessment/Plan: POD #1 after pinning of the left femur. Patient has more pain and tenderness than would be expected, of the upper lateral thigh. Since he had oozing intraoperatively and 200 cc of estimated blood loss, will repeat imaging to assess for hematoma, compartment syndrome, persistent or new fracture. I discussed this management with Dr. Tee. He feels the patient can wait another day with physical therapy because of the excessive pain. (2) Anemia Assessment/Plan: B12 and folate levels were adequate. His iron stores are low. I offered to begin IV iron or oral iron replacement. Patient states he has had this in the past and they "did not work". He does not remember needing a transfusion in the past. He declined to take oral iron supplements because they cause him stomach upset. Follow CBC daily. (3) Thrombocytopenia Assessment/Plan: The patient gave me more details: he had this for 30 years and it had an unknown cause. His last visit to Hematology in [place] was 2 years ago. He claims that his Hospital Sales Representative follows all his labs, adjusts the tacrolimus and would know about his "low blood counts". I called the liver transplant center at . They referred me to the [facility] and said ask for the Hospital Sales Representative auto suspension and steering mechanic. I requested to speak to a Hospital Sales Representative, they are supposed to call me back. (4) Leukopenia Assessment/Plan: Patient stated that he has not seen his utilization engineer in 2 years. He claims that his humidifier maintenance worker follows all his labs, adjust the tacrolimus and would know about his "low blood counts". If there is a large hematoma, or if there is new bleeding, a platelet transfusion could be ordered. Dr. Tee and I discussed this today. I will discuss with a specialist at (see #3) Follow CBC daily. (5) Hypothyroidism Assessment/Plan: Continue his home dose of thyroid replacement medication while here. (6) DM type 2 (diabetes mellitus, type 2) Assessment/Plan: His A1c was 7.2 indicating moderately-good glu control. His Lispro in the evening and mealtime 6U of Insulun will be resumed, since he is eating a carb-controlled diet and glu checks are in 200's. Continue ss Insulin coverage as well. (7) Liver transplant recipient Assessment/Plan: Stable LFTs. (8) CKD (chronic kidney disease) Qualifiers: Chronic kidney disease stage: stage 3 (moderate) Qualified Code(s): N18.3 - Chronic kidney disease, stage 3 (moderate) Assessment/Plan: The creatinine is at its baseline of 1.7-1.8. Follow BMP daily while here. - Current Meds Current Meds: Current Medications Generic Name Dose Route Start Last Admin Trade Name Freq PRN Reason Stop Dose Admin Aspirin 325 mg 12/17/18 17:00 12/18/18 08:09 Fidelia PO 325 mg BIDWM PARVIZ Administration Calcium Citrate 250 mg 12/18/18 09:00 12/18/18 08:08 PO 250 mg DAILY PARVIZ Administration Sodium Chloride 1,000 mls @ 100 mls/hr 12/17/18 11:00 12/18/18 08:18 Normal Saline 0.9% IV 100 mls/hr .Q10H PARVIZ Administration Insulin Aspart 1 - 9 unit 12/18/18 08:00 12/18/18 08:12 Novolog SUBQ 1 unit 0800,1200,1700,2100 PARVIZ Administration Protocol Levothyroxine Sodium 37.5 mcg 12/18/18 07:00 12/18/18 06:38 Synthroid PO 37.5 mcg QDAC PARVIZ Administration Morphine Sulfate 2 mg 12/17/18 10:47 12/17/18 20:28 Morphine (Carpuject) IVP 2 mg Q2HR PRN Administration PAIN Multivitamins 1 tab 12/18/18 09:00 12/18/18 08:09 Theragran PO 1 tab DAILY PARVIZ Administration Oxycodone HCl 5 mg 12/17/18 10:47 12/18/18 08:17 Roxicodone PO 5 mg Q4HR PRN Administration PAIN Pantoprazole Sodium 40 mg 12/17/18 07:00 12/18/18 06:39 Protonix PO 40 mg QDAC PARVIZ Administration Polyethylene Glycol 17 gm 12/17/18 09:00 12/18/18 08:13 Miralax PO Not Given DAILY PARVIZ Sodium Chloride 10 ml 12/17/18 17:00 12/18/18 01:09 Normal Saline Flush 0.9% IVP Not Given 0100,0900,1700 PARVIZ Tacrolimus 0.5 mg 12/17/18 21:00 12/18/18 08:08 Prograf PO 0.5 mg Q12H PARVIZ Administration - Lab Result Fish Bone Diagrams: 12/18/18 05:26 12/18/18 05:26 - Additional Planning My Orders: My Active Orders 12/17/18 16:59 Blood Glucose Checks - Eating [RC] 0800,1200,1700,2100 12/17/18 21:00 Tacrolimus [Prograf] 0.5 mg PO Q12H 12/17/18 Dinner Carb-controlled Diet [DIET] 12/18/18 07:00 Levothyroxine [Synthroid] 37.5 mcg PO QDAC 12/18/18 08:00 Insulin Aspart [NovoLOG] 1 - 9 unit SUBQ 0800,1200,1700,2100 12/18/18 09:00 Calcium Citrate 250 mg PO DAILY Multivitamin [Theragran] 1 tab PO DAILY 12/19/18 05:00 CBC - COMP BLD CT W/AUTO DIFF [HEME] DAILYLAB CMP [COMPREHENSIVE METABOLIC PANEL] [CHEM] DAILYLAB 12/20/18 05:00 CBC - COMP BLD CT W/AUTO DIFF [HEME] DAILYLAB CMP [COMPREHENSIVE METABOLIC PANEL] [CHEM] DAILYLAB Subjective - Subjective Patient Reports: Pain Nursing Reports: Other (Tenderness to touch upper lateral thigh and in pain with repositioning in bed.) Objective Vital Signs: Vital Signs - 24 hr 12/17/18 12/17/18 12/17/18 10:45 10:50 10:55 Temperature 37.3 C Heart Rate 81 77 79 Heart Rate [ Brachial] Respiratory 17 10 L 14 Rate Blood Pressure 148/73 H 137/54 H 140/53 H Blood Pressure [Left Brachial artery] O2 Saturation 97 96 100 12/17/18 12/17/18 12/17/18 11:02 11:07 11:12 Temperature 37.3 C Heart Rate 82 77 76 Heart Rate [ Brachial] Respiratory 16 11 L 13 Rate Blood Pressure 138/49 H 135/53 H 134/51 H Blood Pressure [Left Brachial artery] O2 Saturation 100 100 100 12/17/18 12/17/18 12/17/18 11:17 11:21 11:30 Temperature 37.4 C 37.2 C 37.2 C Heart Rate 81 76 Heart Rate [ 78 Brachial] Respiratory 20 14 18 Rate Blood Pressure 136/51 H 112/52 L Blood Pressure 129/49 L [Left Brachial artery] O2 Saturation 96 98 95 12/17/18 12/17/18 12/17/18 12:00 12:06 13:00 Temperature 36.5 C 37.2 C 36.6 C Heart Rate Heart Rate [ 82 78 76 Brachial] Respiratory 18 18 16 Rate Blood Pressure Blood Pressure 125/44 L 129/49 L 119/44 L [Left Brachial artery] O2 Saturation 95 95 93 12/17/18 12/17/18 12/17/18 14:37 17:30 21:50 Temperature 36.6 C 36.5 C 36.6 C Heart Rate Heart Rate [ 80 69 73 Brachial] Respiratory 16 18 16 Rate Blood Pressure Blood Pressure 112/48 L 106/47 L 116/42 L [Left Brachial artery] O2 Saturation 98 100 100 12/17/18 12/18/18 12/18/18 23:24 05:45 08:00 Temperature 36.7 C 36.7 C 36.9 C Heart Rate Heart Rate [ 77 81 85 Brachial] Respiratory 16 16 17 Rate Blood Pressure Blood Pressure 125/50 L 144/70 H 111/57 L [Left Brachial artery] O2 Saturation 98 95 96 Oxygen O2 Source Room air I&O (Last 24 Hrs): Intake and Output Totals x24h 12/16/18 12/17/18 12/18/18 23:59 23:59 23:59 Intake Total 2160 1546.667 Output Total 0 925 600 Balance 0 1235 946.667 General: Alert, Oriented x3 HEENT: Mucous membr. moist/pink Neck: Supple, No JVD Neuro: Non Focal Cardiovascular: Regular rate, No murmurs Respiratory: No respiratory distress Abdomen: Soft Extremities: No edema - Results Results: Laboratory Results WBC 1.9 x10^3/uL (4.8-10.8) L* 12/18/18 05:26 RBC 2.35 10^6/uL (4.70-6.10) L 12/18/18 05:26 Hgb 7.2 g/dL (14.0-18.0) L 12/18/18 05:26 Hct 21.6 % (42.0-52.0) L 12/18/18 05:26 MCV 91.9 fL (80.0-94.0) 12/18/18 05:26 MCH 30.6 pg (27.0-31.0) 12/18/18 05:26 MCHC 33.3 g/dL (32.0-36.0) 12/18/18 05:26 RDW 15.4 % (12.0-15.0) H 12/18/18 05:26 Plt Count 33 10^3/uL (130-450) L* 12/18/18 05:26 MPV 9.8 fL (7.4-11.4) 12/18/18 05:26 Neut # (Auto) 1.6 10^3/uL (1.5-6.6) 12/18/18 05:26 Lymph # (Auto) 0.1 10^3/uL (1.5-3.5) L 12/18/18 05:26 [place] # (Auto) 0.1 10^3/uL (0.0-1.0) 12/18/18 05:26 Eos # (Auto) 0.1 10^3/uL (0.0-0.7) 12/18/18 05:26 Baso # (Auto) 0.0 10^3/uL (0.0-0.1) 12/18/18 05:26 Absolute Nucleated RBC 0.00 x10^3/uL 12/18/18 05:26 Nucleated RBC % 0.0 /100WBC 12/18/18 05:26 Manual Slide Review Indicated 12/18/18 05:26 Platelet Estimate DECREASED (<130,000) (NORMAL) 12/18/18 05:26 Platelet Morphology NORMAL APPEARANCE (NORMAL) 12/18/18 05:26 RBC Morph Micro Appear NORMAL APPEARANCE (NORMAL) 12/18/18 05:26 PT 14.0 secs (9.9-12.6) H 12/16/18 18:45 INR 1.2 (0.8-1.2) 12/16/18 18:45 Sodium 139 mmol/L (135-145) 12/18/18 05:26 Potassium 4.3 mmol/L (3.5-5.0) 12/18/18 05:26 Chloride 110 mmol/L (101-111) 12/18/18 05:26 Carbon Dioxide 21 mmol/L (21-32) 12/18/18 05:26 Anion Gap 8.0 (6-13) 12/18/18 05:26 BUN 36 mg/dL (6-20) H 12/18/18 05:26 Creatinine 1.8 mg/dL (0.6-1.2) H 12/18/18 05:26 Estimated GFR (MDRD) 38 (>89) L 12/18/18 05:26 Glucose 199 mg/dL (70-100) H 12/18/18 05:26 Glycated Hemoglobin 7.2 % (4.6-6.2) H 12/18/18 05:26 Estim Average Glucose 160 (70-100) H 12/18/18 05:26 Calcium 7.9 mg/dL (8.5-10.3) L 12/18/18 05:26 Iron 12 ug/dL (45-182) L 12/18/18 05:26 TIBC 171 ug/dL (250-450) L 12/18/18 05:26 % Saturation 7 % (20-50) L 12/18/18 05:26 Transferrin 122 mg/dL (180-329) L 12/18/18 05:26 Total Bilirubin 0.5 mg/dL (0.2-1.0) 12/18/18 05:26 AST 17 IU/L (10-42) 12/18/18 05:26 ALT 16 IU/L (10-60) 12/18/18 05:26 Alkaline Phosphatase 49 IU/L (42-121) 12/18/18 05:26 Total Protein 5.4 g/dL (6.7-8.2) L 12/18/18 05:26 Albumin 2.9 g/dL (3.2-5.5) L 12/18/18 05:26 Globulin 2.5 g/dL (2.1-4.2) 12/18/18 05:26 Albumin/Globulin Ratio 1.2 (1.0-2.2) 12/18/18 05:26 Lipase 58 U/L (22-51) H 12/16/18 18:45 Vitamin B12 487 pg/mL (180-914) 12/18/18 05:26 Folate 29.00 ng/mL (5.90 - >24.8) 12/18/18 05:26 Blood Type A NEGATIVE 12/16/18 18:45 Blood Type Recheck A NEGATIVE 12/16/18 18:55 Antibody Screen POSITIVE 12/16/18 18:45 Antibody Identification Anti-Fya 12/16/18 18:45
[2018-12-18] MEDS: ACETAMINOPHEN 1,000 MG/100 ML 100 ML IV PRN ×3 (10:46→23:29)
[2018-12-18] MEDS: MORPHINE 2 MG/ML CARPUJECT IVP PRN (11:12)
--- NOTE | 2018-12-18 12:06 | PROVIDER PROGRESS NOTE ---
Subjective - Prog Note Date Prog Note Date: 12/18/18 Prog Note Time: 12:04 - Subjective Pt reports feeling: Worse (Patient apparently with minimal pain last PM. This AM c/o severe pain on proximal lateral thigh,very similar to preop pain, worse with movement of the left leg. No thigh swelling; no distal weakness/numbness) Objective - Vital Signs/Intake & Output Vital Signs: Vital Signs x48h Temp Pulse Pulse Resp BP Pulse Ox 12/18/18 11:57 37 C 80 20 97 12/18/18 11:00 37.0 C 80 18 132/52 H 95 12/18/18 08:00 36.9 C 85 17 111/57 L 96 12/18/18 05:45 36.7 C 81 16 144/70 H 95 Intake & Output: Intake & Output 12/15/18 12/16/18 12/17/18 12/18/18 23:59 23:59 23:59 23:59 Intake Total 2160 1946.667 Output Total 0 925 600 Balance 0 1235 1346.667 - Lab Results Fish Bones: 12/18/18 05:26 12/18/18 05:26 Other Labs: Lab Results x24hrs 12/18/18 12/18/18 12/18/18 Range/Units 05:26 05:26 05:26 WBC (4.8-10.8) x10^3/uL RBC (4.70-6.10) 10^6/uL Hgb (14.0-18.0) g/dL Hct (42.0-52.0) % MCV (80.0-94.0) fL MCH (27.0-31.0) pg MCHC (32.0-36.0) g/dL RDW (12.0-15.0) % Plt Count (130-450) 10^3/uL MPV (7.4-11.4) fL Neut # (Auto) (1.5-6.6) 10^3/uL Lymph # (Auto) (1.5-3.5) 10^3/uL [place] # (Auto) (0.0-1.0) 10^3/uL Eos # (Auto) (0.0-0.7) 10^3/uL Baso # (Auto) (0.0-0.1) 10^3/uL Absolute Nucleated RBC x10^3/uL Nucleated RBC % /100WBC Manual Slide Review Platelet Estimate (NORMAL) Platelet Morphology (NORMAL) RBC Morph Micro Appear (NORMAL) Sodium (135-145) mmol/L Potassium (3.5-5.0) mmol/L Chloride (101-111) mmol/L Carbon Dioxide (21-32) mmol/L Anion Gap (6-13) BUN (6-20) mg/dL Creatinine (0.6-1.2) mg/dL Estimated GFR (MDRD) (>89) Glucose (70-100) mg/dL Glycated Hemoglobin 7.2 H (4.6-6.2) % Estim Average Glucose 160 H (70-100) Calcium (8.5-10.3) mg/dL Iron 12 L (45-182) ug/dL TIBC 171 L (250-450) ug/dL % Saturation 7 L (20-50) % Transferrin 122 L (180-329) mg/dL Total Bilirubin (0.2-1.0) mg/dL AST (10-42) IU/L ALT (10-60) IU/L Alkaline Phosphatase (42-121) IU/L Total Protein (6.7-8.2) g/dL Albumin (3.2-5.5) g/dL Globulin (2.1-4.2) g/dL Albumin/Globulin Ratio (1.0-2.2) Vitamin B12 487 (180-914) pg/mL Folate 29.00 (5.90 - >24.8) ng/mL 12/18/18 12/18/18 Range/Units 05:26 05:26 WBC 1.9 L* (4.8-10.8) x10^3/uL RBC 2.35 L (4.70-6.10) 10^6/uL Hgb 7.2 L (14.0-18.0) g/dL Hct 21.6 L (42.0-52.0) % MCV 91.9 (80.0-94.0) fL MCH 30.6 (27.0-31.0) pg MCHC 33.3 (32.0-36.0) g/dL RDW 15.4 H (12.0-15.0) % Plt Count 33 L* (130-450) 10^3/uL MPV 9.8 (7.4-11.4) fL Neut # (Auto) 1.6 (1.5-6.6) 10^3/uL Lymph # (Auto) 0.1 L (1.5-3.5) 10^3/uL [place] # (Auto) 0.1 (0.0-1.0) 10^3/uL Eos # (Auto) 0.1 (0.0-0.7) 10^3/uL Baso # (Auto) 0.0 (0.0-0.1) 10^3/uL Absolute Nucleated RBC 0.00 x10^3/uL Nucleated RBC % 0.0 /100WBC Manual Slide Review Indicated Platelet Estimate DECREASED (<130,000) (NORMAL) Platelet Morphology NORMAL APPEARANCE (NORMAL) RBC Morph Micro Appear NORMAL APPEARANCE (NORMAL) Sodium 139 (135-145) mmol/L Potassium 4.3 (3.5-5.0) mmol/L Chloride 110 (101-111) mmol/L Carbon Dioxide 21 (21-32) mmol/L Anion Gap 8.0 (6-13) BUN 36 H (6-20) mg/dL Creatinine 1.8 H (0.6-1.2) mg/dL Estimated GFR (MDRD) 38 L (>89) Glucose 199 H (70-100) mg/dL Glycated Hemoglobin (4.6-6.2) % Estim Average Glucose (70-100) Calcium 7.9 L (8.5-10.3) mg/dL Iron (45-182) ug/dL TIBC (250-450) ug/dL % Saturation (20-50) % Transferrin (180-329) mg/dL Total Bilirubin 0.5 (0.2-1.0) mg/dL AST 17 (10-42) IU/L ALT 16 (10-60) IU/L Alkaline Phosphatase 49 (42-121) IU/L Total Protein 5.4 L (6.7-8.2) g/dL Albumin 2.9 L (3.2-5.5) g/dL Globulin 2.5 (2.1-4.2) g/dL Albumin/Globulin Ratio 1.2 (1.0-2.2) Vitamin B12 (180-914) pg/mL Folate (5.90 - >24.8) ng/mL - Diagnostic Imaging Diagnostic Imaging Comments: XR show no significant interval changes in left hip/femur. Hardware ok Assessment/Plan - Problem List (1) Fracture, intertrochanteric, left femur Impression: Satis post op. A bit more pain than anticipated on POD#1. Doubt change in fracture or new fracture or significant thigh hematoma; no compartment syndrome PLAN: Keep adams in one more day. Hold PT until POD#2. Consider PRBC and possibly platelet transfusion, pending discussion with [place] soaker helper Qualifiers: Encounter type: initial encounter Fracture type: closed Fracture alignment: nondisplaced Qualified Code(s): S72.145A - Nondisplaced intertrochanteric fracture of left femur, initial encounter for closed fracture
--- NOTE | 2018-12-18 12:33 | XRAY Report ---
Reason: Eval for fracture, displacement, hematoma Procedure Date: 12/18/2018 Accession Number: [id number] / [id number] Procedure: XR - Femur 2V LT CPT Code: FULL RESULT: EXAM: LEFT FEMUR RADIOGRAPHY EXAM DATE: 12/18/2018 11:23 AM. CLINICAL HISTORY: Eval for fracture, displacement, hematoma. COMPARISON: Pelvis and left hip radiographs from 12/16/2018. TECHNIQUE: 2 views. FINDINGS: Bones: Fixation hardware is demonstrated in the proximal femur, consisting of intramedullary fazal, cannulated screw through the femoral head and neck, and distal fixation screw. Hardware appears intact. Oblique fracture, extending from the lesser trochanter to the lateral aspect of the proximal diaphysis is demonstrated. No significant fracture displacement demonstrated. No new fracture demonstrated. Joints: No dislocation or subluxation. Soft Tissues: Soft tissues around the left hip appear prominent, and there are foci of soft tissue gas, compatible with recent surgery. Skin mery are noted. Cross catheter in place. IMPRESSION: 1. Postsurgical changes from recent fixation of left proximal femur fracture. Nondisplaced fracture is again demonstrated. No new fracture demonstrated. 2. Prominent soft tissues around the left hip with areas of soft tissue gas, compatible with recent surgery. Hematoma cannot be excluded by radiography. If indicated, could consider CT or targeted ultrasound for further evaluation. RADIA
[2018-12-18] MEDS: INSULIN GLARGINE 300 UNIT/3 ML PEN SUBQ SCH (20:49)
[2018-12-19] MEDS: SODIUM CHLORIDE FLUSH 0.9% 10 ML SYRINGE IVP SCH ×3 (00:08→17:11)
[2018-12-19] MEDS: ACETAMINOPHEN 1,000 MG/100 ML 100 ML IV PRN (05:27)
[2018-12-19 05:33] LABS: BASOPHILS % (AUTO) 0.4 %; EOSINOPHILS # (AUTO) 0.1 10^3/uL (0.0-0.7); EOSINOPHILS % (AUTO) 4.1 %; LYMPHOCYTES # (AUTO) 0.2 10^3/uL (1.5-3.5); MEAN CORPUSCULAR HEMOGLOBIN 30.5 pg (27.0-31.0); MEAN CORPUSCULAR HGB CONC 33.7 g/dL (32.0-36.0); MEAN CORPUSCULAR VOLUME 90.6 fL (80.0-94.0); MEAN PLATELET VOLUME 8.3 fL (7.4-11.4); MONOCYTES # (AUTO) 0.1 10^3/uL (0.0-1.0); MONOCYTES % (AUTO) 6.7 %; NEUTROPHILS # (AUTO) 1.4 10^3/uL (1.5-6.6); NEUTROPHILS % (AUTO) 79.8 %; RED BLOOD COUNT 2.26 10^6/uL (4.70-6.10); RED CELL DISTRIBUTION WIDTH 14.9 % (12.0-15.0)
[2018-12-19] MEDS: oxyCODONE 5 MG TABLET PO PRN ×3 (05:35→17:09)
[2018-12-19 05:42] LABS: ALBUMIN 2.8 g/dL (3.2-5.5); BILIRUBIN,TOTAL 0.9 mg/dL (0.2-1.0); CREATININE 1.7 mg/dL (0.6-1.2); TOTAL PROTEIN 5.5 g/dL (6.7-8.2)
[2018-12-19 05:46] LABS: HGB - HEMOGLOBIN 6.9 g/dL (14.0-18.0); PLT - PLATELET COUNT 29 10^3/uL (130-450); WHITE BLOOD COUNT 1.8 x10^3/uL (4.8-10.8)
[2018-12-19 06:07] LABS: RBC MORPHOLOGY (MULTIPLE) 2+ HYPOCHROMASIA (NORMAL)
[2018-12-19 06:08] LABS: PLATELET MORPHOLOGY NORMAL APPEARANCE (NORMAL)
[2018-12-19 06:09] LABS: PLATELET ESTIMATE, MANUAL DECREASED (<130,000) (NORMAL)
[2018-12-19] MEDS: LEVOTHYROXINE 25 MCG TABLET PO SCH (06:33)
[2018-12-19] MEDS: PANTOPRAZOLE 40 MG TABLET PO SCH (06:35)
[2018-12-19] MEDS: INSULIN ASPART 300 UNIT/3 ML PEN SUBQ SCH ×7 (07:55→20:24)
[2018-12-19] MEDS: TACROLIMUS 0.5 MG CAPSULE PO SCH ×2 (08:27→20:21)
[2018-12-19] MEDS: CALCIUM CITRATE 250 MG TABLET PO SCH (08:27)
[2018-12-19] MEDS ORDERED: SODIUM CHLORIDE 0.9% 500 ML IV ONE ×2 (09:22→13:22)
[2018-12-19] MEDS ORDERED: SODIUM CHLORIDE FLUSH 0.9% 10 ML SYRINGE ONE (09:22)
--- NOTE | 2018-12-19 09:30 | MISCELLANEOUS PROVIDER NOTE ---
Miscellaneous Provider Note - - Note: HPI: Patient is 68-year-old white male with past medical history of liver transplant, on immunosuppressant therapy with tacrolimus, insulin-dependent diabetes mellitus type 2, hypertension, hypothyroidism, chronic kidney disease, chronic thrombocytopenia. He was on a beach picnic during the daytime on 12/16/2018, was walking on the beach, slipped and on seaweed and fell on his left side. He suffered a left intertrochanteric hip fracture, which was shown on x- ray. At the ER the patient was hemodynamically stable. He had an abnormality labs including platelets count of 70 2K, creatinine 1.8, hemoglobin 9.9, INR 1.2. He was seen by ER physician, who coordinated his case. He called the orthopedic surgeon Dr. Tee who would operate on the patient and schedule surgery for 12/17/2018. Subsequently, considering this patient's complex background with liver transplant, the patient's director sales support at the [facility] was called. The case was discussed and Dr. Ponce made sure that this patient could [facility] Lab results were reviewed and were found in line with recent baseline numbers. Care was also could not coordinated with the anesthesiologist was aware and will review case for proper anesthesia. Subjective: Patient seen at bedside complaining of intermittent left thigh, throbbing, stabbing pain relieved with narcotics however comes and goes. Patient's primary fur joiner is Dr. JOHN Johnson, primary hematology/oncologist is Dr. Lobo. Denies fevers, chest pain, shortness of breath, coughing, or bruising to the left thigh. Patient denies diarrhea, GI or symptoms. Currently on a Cross catheter. Objective: Vital signs are hemodynamically stable, afebrile, heart rate 79 bpm, blood pressure 133/51, RR of 18, 96% O2 saturation room air. General: Patient is alert and oriented x3, up in bed eating breakfast. In no respiratory distress. HEENT: Positive conjunctival pallor, no buccal lesions, no scleral icterus. Neck no JVD no bruits no lymphadenopathy CV/lungs: RRR. CTA BL. No murmurs gallops clicks or rubs. Abdomen: No hepatosplenomegaly, no masses, no ascites. Extremities/skin: Mild pallor to nailbeds, no petechiae, left thigh without any ecchymosis. Neuro: grossly intact Labs: Reviewed Imaging studies: Reviewed Assessment/Plan - Problem List (1) Pancytopenia Patient with leukopenia, worsening thrombocytopenia, and multifactorial anemia. Patient with a history of chronic underlying thrombocytopenia. Patient has had a baseline WBC per primary pathologist of 3.0. According to the conversation with Dr. Harrison and Dr Torres (Primary director sales support), at the [facility] patient does not have tacrolimus induced thrombocytopenia, anemia and suggest that this may be hemodilution. Observation is warranted. However precipitous drop has been noted with patient's hemoglobin on admission of 9.9 g/dL dropping to 6.9 today and will type and crossmatch 2 units and transfuse under restrictive transfusion protocol without evidence of coronary artery disease or heart disease, in addition platelets were also ordered with the indication if that patient is having a hematoma that transfusion is also indicated with platelet threshold of less than 20 K without bleeding and less than 50 K with underlying lymphoma/leukemia or other cancers. Patient's primary director sales support is out of [place], Dr. Lobito Hernandez. I will attempt to contact him for further direction. Meanwhile will discontinue aspirin as this may be influencing patient's anemia and thrombocytopenia. Unclear of the leukopenia cause at this point. However, He claims he had seen Dr. Torres, the patient was last there in October 2018, his fur joiner follows all his labs, adjust the tacrolimus and would know about his "low blood counts". I do not think this is DIC, infection or hemolytic anemia as LFTs are normal, T bilirubin is normal and there are no evidence of schistocytes seen on peripheral smear. We will continue to monitor with CBC. His primary Sewage Plant Supervisor oncologist recommended possibly placing him on dexamethasone for approximately 4 days without taper versus IVIG 1 g/kg due to autoimmune destruction of platelets/hypersplenism with a component of portal hypertension as potential cause. (2) Fracture, intertrochanteric, left femur Qualifiers: Encounter type: initial encounter Fracture type: closed Fracture alignment: nondisplaced Qualified Code(s): S72.145A - Nondisplaced intertrochanteric fracture of left femur, initial encounter for closed fracture Assessment/Plan: POD #3 after pinning of the left femur. Patient has intermittent throbbing pain to the left thigh. Will continue with current pain medication, might have underlying diabetic neuropathic type pain we will add Lyrica to her regimen. Since he had oozing intraoperatively and 200 cc of estimated blood loss, will repeat imaging to assess for hematoma, compartment syndrome, persistent or new fracture. Will continue with physical therapy despite pain, ultrasound to evaluate for left ipsilateral hematoma formation. Possibility that the intertrochanteric fracture propagated and extended in a spiral like fashion and this may or may not worsen for which orthopedic service may exchange small nail for a larger nail. (3) Anemia-Multifactorial Assessment/Plan: Primary director sales support oncologist who I spoke to over the phone did mention concern for dropping his hematocrit where his baseline platelets in the past have been 50 K, will consider above recommendations as delineated. Patient has a history of iron deficiency anemia however it does not want IV iron or oral iron due to GI upset. May be a component of hemodilution. Patient has been on tacrolimus chronically, however this is not convincing to the primary fur joiner on his worsening anemia. Patient is typed and crossmatched 2 units and will transfuse under a restrictive protocol of less than 7 g/dL in the absence of heart disease. Follow CBC daily. (4) Chronic Thrombocytopenia, worsening Assessment/Plan: Patient's baseline platelets of 50 K per primary director sales support oncologist over at [facility]. Patient likely will benefit from the discontinuation of aspirin. The patient gave me more details: he had this for 30 years and it had an unknown cause. His last visit to Hematology in [place] was 2 years ago. He claims that his Home Improvement Installer follows all his labs, adjusts the tacrolimus and would know about his "low blood counts". I did discuss treatement options with his primary director sales support oncologist Dr. Lobito Hernandez at [phone]. Recommendations were to possibly start on dexamethasone 4-day course, IVIG 1 g/kg x 1 for possible ITP. Continue to follow platelet trending. (5) Hypothyroidism Assessment/Plan: Continue his home dose of thyroid replacement medication while here. (6) DM type 2 (diabetes mellitus, type 2) Assessment/Plan: His A1c was 7.2 indicating moderately-good glu control. Continue with lispro, carb controlled diet, Accu-Cheks Continue ss Insulin coverage as well. Will need to readjust if patient is placed on dexamethasone. (7) Liver transplant recipient Assessment/Plan: Stable LFTs. Continue tacrolimus at the current dose. No need to readjust per pharmacy. (8) Left lateral lower extremity pain We will obtain an ultrasound to evaluate for hematoma formation. Orthopedic service believes that patient has propagated fracture and if this worsens then small nail will be have to be exchanged for larger nail. Continue with current IV/p.o. pain meds, add Lyrica to regimen plus or minus Flexeril. (9) CKD (chronic kidney disease) Qualifiers: Chronic kidney disease stage: stage 3 (moderate) Qualified Code(s): N18.3 - Chronic kidney disease, stage 3 (moderate) Assessment/Plan: Patient indeed has chronic kidney disease stage II maybe 3 however baseline does range between 1.3-1.4. Follow BMP daily while here. (10) DVT prophylaxis Patient was placed on aspirin for thromboembolic prophylaxis however due to patient's chronic thrombocytopenia and precipitous drops in platelets will discontinue this and placed on SCD boots bilateral lower extremities.
[2018-12-19] MEDS: SODIUM CHLORIDE FLUSH 0.9% 10 ML SYRINGE IVP PRN (10:24)
[2018-12-19] MEDS: ACETAMINOPHEN 325 MG TABLET PO PRN ×2 (10:56→20:21)
[2018-12-19] MEDS: POLYETHYLENE GLYCOL 3350 17 GM PACKET PO SCH (11:09)
[2018-12-19] MEDS ORDERED: CYCLOBENZAPRINE 10 MG TABLET PO PRN (11:30)
--- NOTE | 2018-12-19 11:45 | PROVIDER PROGRESS NOTE ---
Subjective - Prog Note Date Prog Note Date: 12/19/18 Prog Note Time: 11:42 - Subjective Pt reports feeling: Improved (Less pain with hip motion this AM. No distal weakness/numbness) Objective - Vital Signs/Intake & Output Vital Signs: Vital Signs x48h Temp Pulse Pulse Resp BP BP Pulse Ox 12/19/18 10:30 37.2 C 71 18 123/57 L 12/19/18 10:01 36.9 C 81 18 118/51 L 12/19/18 07:50 36.6 C 79 17 118/52 L 96 Intake & Output: Intake & Output 12/16/18 12/17/18 12/18/18 12/19/18 23:59 23:59 23:59 23:59 Intake Total 2160 4186.667 500 Output Total 0 925 1750 575 Balance 0 1235 2436.667 -75 - Lab Results Fish Bones: 12/19/18 05:19 12/19/18 05:19 Other Labs: Lab Results x24hrs 12/19/18 12/19/18 12/16/18 Range/Units 05:19 05:19 18:45 WBC 1.8 L* (4.8-10.8) x10^3/uL RBC 2.26 L (4.70-6.10) 10^6/uL Hgb 6.9 L* (14.0-18.0) g/dL Hct 20.5 L (42.0-52.0) % MCV 90.6 (80.0-94.0) fL MCH 30.5 (27.0-31.0) pg MCHC 33.7 (32.0-36.0) g/dL RDW 14.9 (12.0-15.0) % Plt Count 29 L* (130-450) 10^3/uL MPV 8.3 (7.4-11.4) fL Neut # (Auto) 1.4 L (1.5-6.6) 10^3/uL Lymph # (Auto) 0.2 L (1.5-3.5) 10^3/uL [place] # (Auto) 0.1 (0.0-1.0) 10^3/uL Eos # (Auto) 0.1 (0.0-0.7) 10^3/uL Baso # (Auto) 0.0 (0.0-0.1) 10^3/uL Absolute Nucleated RBC 0.00 x10^3/uL Nucleated RBC % 0.0 /100WBC Manual Slide Review Indicated WBC Morphology NORMAL APPEARANCE (NORMAL) Platelet Estimate DECREASED (<130,000) (NORMAL) Platelet Morphology NORMAL APPEARANCE (NORMAL) RBC Morph Micro Appear 2+ HYPOCHROMASIA (NORMAL) Sodium 138 (135-145) mmol/L Potassium 4.0 (3.5-5.0) mmol/L Chloride 108 (101-111) mmol/L Carbon Dioxide 20 L (21-32) mmol/L Anion Gap 10.0 (6-13) BUN 32 H (6-20) mg/dL Creatinine 1.7 H (0.6-1.2) mg/dL Estimated GFR (MDRD) 40 L (>89) Glucose 154 H (70-100) mg/dL Calcium 8.0 L (8.5-10.3) mg/dL Total Bilirubin 0.9 (0.2-1.0) mg/dL AST 21 (10-42) IU/L ALT 13 (10-60) IU/L Alkaline Phosphatase 54 (42-121) IU/L Total Protein 5.5 L (6.7-8.2) g/dL Albumin 2.8 L (3.2-5.5) g/dL Globulin 2.7 (2.1-4.2) g/dL Albumin/Globulin Ratio 1.0 (1.0-2.2) Blood Type A NEGATIVE Antibody Screen POSITIVE Antibody Identification Anti-Fya Crossmatch See Detail - Other Results/Comments Other Results/Comments: EXAM: Minimal thigh swelling or ecchymosis. Less hip with leg motion. N/V ok distally Assessment/Plan - Problem List (1) Fracture, intertrochanteric, left femur Impression: stable. Review of XR taken yesterday seem to show fracture propagating distally from IT and into the subtrochanteric region , though proximal to the distal interlocking screw. Minimally displaced. PLAN: Discused pro/con of exchanging the short interTan nail with a long nail. Due to patient high risk status and his clinical imrovement in pain, we have opted to see how he does over the next several days. Will modify PT to just dangle at the bedside with assistance in leg transfers. May weight bear as tolerated. Careful to minimize twisting/torsion stress on leg. If pain is intolerable for patient or fracture propagates further and becomes unstable, wi ll need to exchange nail for a longer nail. depeding on his medical condition, exchange could be done here vs in [place] with an inhouse box toe cementer. Qualifiers: Encounter type: initial encounter Fracture type: closed Fracture alignment: nondisplaced Qualified Code(s): S72.145A - Nondisplaced intertrochanteric fracture of left femur, initial encounter for closed fracture
[2018-12-19] MEDS: PREGABALIN 25 MG CAPSULE PO SCH ×2 (12:20→20:21)
--- NOTE | 2018-12-19 15:47 | Ultrasound Report ---
Reason: Left lateral pain evaluate for hematoma formation Procedure Date: 12/19/2018 Accession Number: [id number] / [id number] Procedure: US - Ext Limited Non Vascular CPT Code: FULL RESULT: EXAM: LEFT LOWER EXTREMITY ULTRASOUND - LIMITED EXAM DATE: 12/19/2018 03:32 PM. CLINICAL HISTORY: Left lateral hip pain postop. Evaluate for hematoma formation. COMPARISON: None. TECHNIQUE: Real-time scanning was performed with static images obtained. FINDINGS: Left hip and thigh imaged around postop bandaging. No focal fluid collections identified. No sign of hematoma, mass, or pseudoaneurysm. IMPRESSION: No ultrasound abnormality identified to explain pain. RADIA
[2018-12-19] MEDS: dexAMETHasone 4 MG TABLET PO SCH (17:10)
[2018-12-19] MEDS: INSULIN GLARGINE 300 UNIT/3 ML PEN SUBQ SCH (20:24)
[2018-12-20] MEDS: SODIUM CHLORIDE FLUSH 0.9% 10 ML SYRINGE IVP SCH ×3 (00:45→17:26)
[2018-12-20] MEDS: ACETAMINOPHEN 325 MG TABLET PO PRN ×3 (03:11→20:09)
[2018-12-20 05:42] LABS: BASOPHILS % (AUTO) 0.2 %; EOSINOPHILS % (AUTO) 0.2 %; HGB - HEMOGLOBIN 8.3 g/dL (14.0-18.0); LYMPHOCYTES # (AUTO) 0.1 10^3/uL (1.5-3.5); LYMPHOCYTES % (AUTO) 6.4 %; MEAN CORPUSCULAR HEMOGLOBIN 30.3 pg (27.0-31.0); MEAN CORPUSCULAR HGB CONC 34.1 g/dL (32.0-36.0); MEAN CORPUSCULAR VOLUME 89.1 fL (80.0-94.0); MEAN PLATELET VOLUME 9.1 fL (7.4-11.4); MONOCYTES # (AUTO) 0.1 10^3/uL (0.0-1.0); MONOCYTES % (AUTO) 3.2 %; NEUTROPHILS # (AUTO) 1.9 10^3/uL (1.5-6.6); PLT - PLATELET COUNT 50 10^3/uL (130-450); RED BLOOD COUNT 2.74 10^6/uL (4.70-6.10); WHITE BLOOD COUNT 2.1 x10^3/uL (4.8-10.8)
[2018-12-20 05:54] LABS: ALBUMIN 2.9 g/dL (3.2-5.5); BILIRUBIN,TOTAL 1.1 mg/dL (0.2-1.0); CREATININE 1.7 mg/dL (0.6-1.2); TOTAL PROTEIN 5.9 g/dL (6.7-8.2)
[2018-12-20] MEDS: LEVOTHYROXINE 25 MCG TABLET PO SCH (06:34)
[2018-12-20] MEDS: PANTOPRAZOLE 40 MG TABLET PO SCH (06:37)
[2018-12-20] MEDS ORDERED: LACTATED RINGERS 1,000 ML IV SCH ×2 (08:00→18:21)
[2018-12-20] MEDS: INSULIN ASPART 300 UNIT/3 ML PEN SUBQ SCH ×7 (08:22→20:08)
[2018-12-20] MEDS: TACROLIMUS 0.5 MG CAPSULE PO SCH ×2 (08:24→20:09)
[2018-12-20] MEDS: PREGABALIN 25 MG CAPSULE PO SCH ×2 (08:24→20:09)
[2018-12-20] MEDS: dexAMETHasone 4 MG TABLET PO SCH ×2 (08:24→17:26)
[2018-12-20] MEDS: CALCIUM CITRATE 250 MG TABLET PO SCH (08:24)
[2018-12-20] MEDS: MULTIVITAMIN TABLET PO SCH (08:27)
[2018-12-20] MEDS: POLYETHYLENE GLYCOL 3350 17 GM PACKET PO SCH (08:29)
[2018-12-20] MEDS: SODIUM CHLORIDE FLUSH 0.9% 10 ML SYRINGE IVP PRN (08:38)
--- NOTE | 2018-12-20 09:34 | PROVIDER PROGRESS NOTE ---
Subjective - Prog Note Date Prog Note Date: 12/20/18 Prog Note Time: 09:32 - Subjective Pt reports feeling: Improved (Much less pain today. Moveing leg by himself with less pain) Objective - Vital Signs/Intake & Output Vital Signs: Vital Signs x48h Temp Pulse Resp BP Pulse Ox 12/20/18 09:08 36.6 C 60 18 108/96 H 100 Intake & Output: Intake & Output 12/17/18 12/18/18 12/19/18 12/20/18 23:59 23:59 23:59 23:59 Intake Total 2160 4186.667 2306 330 Output Total 925 1750 1550 200 Balance 1235 2436.667 756 130 - Lab Results Fish Bones: 12/20/18 05:35 12/20/18 05:35 Other Labs: Lab Results x24hrs 12/20/18 12/20/18 12/16/18 Range/Units 05:35 05:35 18:45 WBC 2.1 L (4.8-10.8) x10^3/uL RBC 2.74 L (4.70-6.10) 10^6/uL Hgb 8.3 L (14.0-18.0) g/dL Hct 24.4 L (42.0-52.0) % MCV 89.1 (80.0-94.0) fL MCH 30.3 (27.0-31.0) pg MCHC 34.1 (32.0-36.0) g/dL RDW 15.0 (12.0-15.0) % Plt Count 50 L (130-450) 10^3/uL MPV 9.1 (7.4-11.4) fL Neut # (Auto) 1.9 (1.5-6.6) 10^3/uL Lymph # (Auto) 0.1 L (1.5-3.5) 10^3/uL [place] # (Auto) 0.1 (0.0-1.0) 10^3/uL Eos # (Auto) 0.0 (0.0-0.7) 10^3/uL Baso # (Auto) 0.0 (0.0-0.1) 10^3/uL Absolute Nucleated RBC 0.00 x10^3/uL Nucleated RBC % 0.0 /100WBC Sodium 137 (135-145) mmol/L Potassium 4.4 (3.5-5.0) mmol/L Chloride 106 (101-111) mmol/L Carbon Dioxide 20 L (21-32) mmol/L Anion Gap 11.0 (6-13) BUN 35 H (6-20) mg/dL Creatinine 1.7 H (0.6-1.2) mg/dL Estimated GFR (MDRD) 40 L (>89) Glucose 241 H (70-100) mg/dL Calcium 8.0 L (8.5-10.3) mg/dL Total Bilirubin 1.1 H (0.2-1.0) mg/dL AST 24 (10-42) IU/L ALT 14 (10-60) IU/L Alkaline Phosphatase 59 (42-121) IU/L Total Protein 5.9 L (6.7-8.2) g/dL Albumin 2.9 L (3.2-5.5) g/dL Globulin 3.0 (2.1-4.2) g/dL Albumin/Globulin Ratio 1.0 (1.0-2.2) Blood Type A NEGATIVE Antibody Screen POSITIVE Antibody Identification Anti-Fya Crossmatch See Detail - Other Results/Comments Other Results/Comments: EXAM: Mild thigh swelling. Still with some lateral hip tenderness. Much less pain with hip motion Assessment/Plan - Problem List (1) Fracture, intertrochanteric, left femur Impression: Stable PLAN: Advance activities as tolerated. Careful not to twist or torque left leg. Ready to go to SNF from orthopedic standpoint with continued PT precautions. Follow up in 2 weeks in clinic for mery out and new XR. Qualifiers: Encounter type: initial encounter Fracture type: closed Fracture alignment: nondisplaced Qualified Code(s): S72.145A - Nondisplaced intertrochanteric fracture of left femur, initial encounter for closed fracture
[2018-12-20] MEDS: oxyCODONE 5 MG TABLET PO PRN (10:52)
--- NOTE | 2018-12-20 12:41 | MISCELLANEOUS PROVIDER NOTE ---
Miscellaneous Provider Note - - Note: HPI: Patient is 68-year-old white male with past medical history of liver transplant, on immunosuppressant therapy with tacrolimus, insulin-dependent diabetes mellitus type 2, hypertension, hypothyroidism, chronic kidney disease, chronic thrombocytopenia. He was on a beach picnic during the daytime on 12/16/2018, was walking on the beach, slipped and on seaweed and fell on his left side. He suffered a left intertrochanteric hip fracture, which was shown on x- ray. At the ER the patient was hemodynamically stable. He had an abnormality labs including platelets count of 70 2K, creatinine 1.8, hemoglobin 9.9, INR 1.2. He was seen by ER physician, who coordinated his case. He called the orthopedic surgeon Dr. Tee who would operate on the patient and schedule surgery for 12/17/2018. Subsequently, considering this patient's complex background with liver transplant, the patient's j2ee programmer at the [facility] was called. The case was discussed and Dr. Ponce made sure that this patient could be [facility]. Lab results were reviewed and were found in line with recent baseline numbers. Care was also could not coordinated with the anesthesiologist was aware and will review case for proper anesthesia. Subjective: Patient seen at bedside with improved left lateral leg pain. Will be initiated physical therapy today. No evidence of fevers, nausea vomiting GI or symptoms. No maculopapular rashes or bruising. Objective: Vital signs are hemodynamically stable, Afebrile, heart rate 60 bpm, blood pressure 114/42, RR 18, 99% O2 saturation on room air. General: Patient is alert and oriented x3, up in bed eating breakfast. In no respiratory distress. HEENT: Positive conjunctival pallor, no buccal lesions, no scleral icterus. Neck no JVD no bruits no lymphadenopathy CV/lungs: RRR. CTA BL. No murmurs gallops clicks or rubs. Abdomen: No hepatosplenomegaly, no masses, no ascites. Extremities/skin: Mild pallor to nailbeds, no petechiae, left thigh without any ecchymosis. Neuro: grossly intact Labs: Reviewed Imaging studies: Reviewed Assessment/Plan - Problem List (1) Pancytopenia Improved after initiation of Decadron. We will continue with this as recommended by primary j2ee programmer/oncologist at [facility] for a period of 4 days. Patient has reached need IR and pancytopenia still present but improved. No evidence of infection. No evidence of DIC or hemolytic anemia. No schistocytes seen on peripheral smear. Continue with daily CBC monitoring. 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 (2) Fracture, intertrochanteric, left femur Qualifiers: Encounter type: initial encounter Fracture type: closed Fracture alignment: nondisplaced Qualified Code(s): S72.145A - Nondisplaced intertrochanteric fracture of left femur, initial encounter for closed fracture Assessment/Plan: POD #4 after pinning of the left femur. Patient's pain has improved signi ficantly while on Lyrica and Flexeril. Patient's pain was initially attributable to the propagation of the spiraling pattern type fracture status post short nail placement. Ultrasound shows no formation of hematoma Postoperatively. Per ortho instructions Advance activities as tolerated. Careful not to twist or torque left leg. Ready to go to SNF from orthopedic standpoint with continued PT preca utions. Follow up in 2 weeks in clinic for mery out and new XR. (3) Anemia-Multifactorial Assessment/Plan: Patient is currently now at Baseline with 50 K platelets. Patient is on day 2 of Decadron. Will obtain a an occult blood test. Patient has had 2 units of PRBCs with Restrictive protocol of less than 7 g/dL in the absence of heart disease. Primary admissions recruiter as well as j2ee programmer have been in communication with patient's care. Follow CBC daily. (4) Chronic Thrombocytopenia, worsening Assessment/Plan: Patient's primary j2ee programmer/oncologist over at [facility] suggested due to patient's history of hypersplenism with associated portal hypertension esophageal varices that patient will require dexamethasone for approximately 4 days without tapering. If patient fails treatment then patient will need a course of IVIG 1 g/KG x1 for possible refractory ITP. Patient responding well with platelet counts improving. No indication for transfusion at this time without evidence of postoperative bleeding or hematoma formation seen on ultrasound. (5) Hypothyroidism Assessment/Plan: Continue his home dose of thyroid replacement medication while here. (6) DM type 2 (diabetes mellitus, type 2) With steroid-induced hyperglycemia Assessment/Plan: His A1c was 7.2 indicating moderately-good glu control. However steroid-induced hyperglycemia seen. Continue with lispro, carb controlled diet, Accu-Cheks. Patient is questioning the efficacy of NovoLog. Patient prefers to use Humalog instead. Continue ss Insulin coverage as well. Will need to readjust if patient is placed on dexamethasone. Will adjust glargine to 12 units as hyperglycemic excursions noted. (7) Liver transplant recipient Assessment/Plan: Stable LFTs. Continue tacrolimus at the current dose. No need to readjust per pharmacy. (8) Left lateral lower extremity pain No evidence of hematoma formation. Patient to continue with physical therapy as indicated by orthopedic service and to administer either IV morphine/p.o. oxycodone prior to physical therapy. Patient has improved pain on Lyrica and Flexeril as needed. (9) CKD (chronic kidney disease) Qualifiers: Chronic kidney disease stage: stage 3 (moderate) Qualified Code(s): N18.3 - Chronic kidney disease, stage 3 (moderate) Assessment/Plan: Patient indeed has chronic kidney disease stage II maybe 3 however baseline does range between 1.3-1.4. Current creatinine is steady at 1.7. Will perfuse kidneys a little bit more with LR IVF's. Follow BMP daily while here. (10) DVT prophylaxis Patient was placed on aspirin for thromboembolic prophylaxis however due to patient's chronic thrombocytopenia and precipitous drops in platelets will discontinue this and placed on SCD boots bilateral lower extremities.
[2018-12-20] MEDS ORDERED: INSULIN GLARGINE 300 UNIT/3 ML PEN SUBQ SCH (21:00)
[2018-12-21] MEDS: ACETAMINOPHEN 325 MG TABLET PO PRN ×2 (00:44→14:32)
[2018-12-21 05:43] LABS: EOSINOPHILS % (AUTO) 0.1 %; HGB - HEMOGLOBIN 8.5 g/dL (14.0-18.0); LYMPHOCYTES # (AUTO) 0.1 10^3/uL (1.5-3.5); LYMPHOCYTES % (AUTO) 6.6 %; MEAN CORPUSCULAR HEMOGLOBIN 30.1 pg (27.0-31.0); MEAN CORPUSCULAR HGB CONC 33.4 g/dL (32.0-36.0); MEAN CORPUSCULAR VOLUME 90.4 fL (80.0-94.0); MEAN PLATELET VOLUME 9.5 fL (7.4-11.4); MONOCYTES # (AUTO) 0.1 10^3/uL (0.0-1.0); MONOCYTES % (AUTO) 2.9 %; NEUTROPHILS # (AUTO) 1.8 10^3/uL (1.5-6.6); NEUTROPHILS % (AUTO) 90.4 %; PLT - PLATELET COUNT 63 10^3/uL (130-450); RED BLOOD COUNT 2.82 10^6/uL (4.70-6.10); RED CELL DISTRIBUTION WIDTH 15.5 % (12.0-15.0)
[2018-12-21 05:51] LABS: ALBUMIN 2.9 g/dL (3.2-5.5); CALCIUM 8.1 mg/dL (8.5-10.3); CREATININE 1.6 mg/dL (0.6-1.2); PHOSPHORUS 2.4 mg/dL (2.5-4.6)
[2018-12-21 06:23] LABS: DIFFERENTIAL COMMENT MANUAL=AUTO DIFF; PLATELET ESTIMATE, MANUAL DECREASED (<130,000) (NORMAL); RBC MORPHOLOGY (MULTIPLE) NORMAL APPEARANCE (NORMAL)
[2018-12-21] MEDS: LEVOTHYROXINE 25 MCG TABLET PO SCH (06:44)
[2018-12-21] MEDS: SODIUM CHLORIDE FLUSH 0.9% 10 ML SYRINGE IVP SCH ×2 (06:45→07:51)
[2018-12-21] MEDS: PANTOPRAZOLE 40 MG TABLET PO SCH (06:45)
[2018-12-21] MEDS: ACETAMINOPHEN 1,000 MG/100 ML 100 ML IV PRN (07:45)
[2018-12-21] MEDS: CALCIUM CITRATE 250 MG TABLET PO SCH (07:48)
[2018-12-21] MEDS: dexAMETHasone 4 MG TABLET PO SCH (07:48)
[2018-12-21] MEDS: oxyCODONE 5 MG TABLET PO PRN ×2 (07:49→14:32)
[2018-12-21] MEDS: PREGABALIN 25 MG CAPSULE PO SCH (07:49)
[2018-12-21] MEDS: TACROLIMUS 0.5 MG CAPSULE PO SCH (07:50)
[2018-12-21] MEDS: MULTIVITAMIN TABLET PO SCH (07:50)
[2018-12-21] MEDS: POLYETHYLENE GLYCOL 3350 17 GM PACKET PO SCH (07:51)
[2018-12-21] MEDS: INSULIN ASPART 300 UNIT/3 ML PEN SUBQ SCH ×4 (07:52→12:06)
[2018-12-21] MEDS ORDERED: FILGRASTIM-SNDZ 300 MCG/0.5 ML SYRINGE SUBQ ONE (07:53)
--- NOTE | 2018-12-21 10:10 | Discharge Plan ---
"Discharge Plan for SNF / [facility] - Discharge Plan And Transition Orders Disposition: 03 SNF DC/Xfer Condition: Good Allergies and Adverse Reactions: Allergies Allergy/AdvReac Type Severity Reaction Status Date / Time No Known Drug Allergies Allergy Verified 02/12/13 14:25 - SNF / [facility] Transition Orders Admit to (Facility): [facility] Under the care of (Name): Jethro Paul Discharge Diagnosis: (1) Pancytopenia, Improved (2) Fracture, intertrochanteric, left femur Status post repair, Stable (3) Anemia-Multifactorial, Status post 2 units PRBCs, stable (4) Chronic Thrombocytopenia, On Decadron, improved (5) Hypothyroidism, Stable (6) DM type 2 (diabetes mellitus, type 2) With steroid-induced hyperglycemia, Stable (7) Liver transplant recipient, On tacrolimus, stable (8) Left lateral lower extremity pain, Improved (9) CKD (chronic kidney disease), Stage II/III, Stable Medicare Certification Statement: I certify that Post Hospital care home care is medically necessary on a continuing basis for any of the conditions for which she/he is receiving care during hospitalization. Notify PCP of admission and forward orders to primary provider for signature. Weight on admission and: Weekly Other Notification Orders: Call PCP immediately if patient develops dyspnea, chest pain/tightness or edema. House Bowel Program: Yes Additional Bowel Program Orders: If no BM after 2 days, nurse may give M.O.M. 30ml PO PRN and/or ducolax Supp 1 NM and/or LYNETTE 250mg P.O., and/or senna 1-2 tabs PO. On day 3 nurse may give repeat above order until residents constipation is resolved. Annual Influenza Vaccine (between Mar 11 and October 08): Yes Two-step PPD per [facility] [phone] or approved exception documents: No Treatments & Other Orders: Please see discharge MAR Lab Tests or X-ray Orders: CBC/renal panel q. 4 days. Left hip x-ray as per orthopedic service post rehab discharge Medication Orders: PLEASE REFER TO THE DISCHARGE MEDICATION LIST. Insulin Orders?: Yes - Diet Type: Carb controlled diet Texture: Regular Liquids: Thin May have monthly special meal: Yes - Therapies | Activity Therapy: Evaluation | Treat if indicated: PT, OT Rehabilitation Potential: Maximize functional status, Return to independent living, Maintain present ADL Functional Activity: Activity as Tolerated Weight Bearing: Other (Per orthopedic service) Assistance Devices: Wheelchair Additional Instructions: You were admitted for a fracture to your left femur that required repair. During the interim you were found to have severe multifactorial anemia related to IV fluids, blood loss anemia intraoperatively along with possible influence of your existing hypersplenism with associated chronic thrombocytopenia which required 2 units of packed red blood cells while you are hospitalized. Fortunately you did not require any platelet transfusion as your primary oncologist diamond wheel molder had recommended to just give you steroids for 4 days duration. Unfortunately, your sugars did spike as a result of being treated with Decadron. In addition you were pancytopenic which meant that all cell lines were low. Your white blood cells were needing a medication called Neupogen to increase their numbers prior to discharge. You were also found to have iron deficiency anemia for which you declined IV iron and iron supplementation. Your vitamin B12 and folic acid were within normal limits. You did not have any evidence of infection despite you receiving immunosuppressant therapy of tacrolimus for your liver transplant status. We initially thought that your tacrolimus was causing suppression of all your cell lines however your primary diamond wheel molder did not agree with this therapy. Overall your pancytopenia did improve as well as your chronic kidney disease which did have some renal insufficiency on admission. Your other medical conditions were addressed with the continuation of your medications. These medications are to continue as an outpatient with the exception of taking you off lisinopril as to not further damage your chronic kidney disease status. You were given pain control with morphine, Lyrica, Flexeril and oxycodone and this allowed you to perform physical therapy under the direction of Dr. Tee. Dr. Tee had commented that you had a spiral type fracture that may have promulgated to a certain degree that the short nail may not be adequate. However, he is confident that this should hold up and have further pain that is unbearable were to become recurrent then he will likely perform a second surgery with a long nail. An x-ray is to be performed on your next visitation with Dr. Tee. You will continue with continued physical therapy as well as occupational therapy over at [facility] and continue with glycemic control withAs well as your glargine which was uptitrated to 12 units subcu insulin sliding scale along with your scheduled Humalog dose daily due to steroid-induced hyperglycemia from the Decadron. Follow Up: To follow-up with a new PCP locally here in [place] with Dr. Tim Carter in 1 or 2 weeks. To follow-up with Dr. Tee as scheduled. Insulin Orders - SNF Basal | Correction | Custom Orders: Diagnosis: Diabetes Initiate hypo and hyperglycemia protocols for BG <70 and BG >375. May check BG PRN for signs/symptoms of dysglycemia. Frequency of BG checks: [AC/Meal/HS] Basal Insulin: [x] Lantus 100 units / ml inject subq as follows: 12 units subcu daily [] Other: [] Correction Insulin: - Select the type of insulin below [Choose: Novolog/Humalog]100 units /ml insulin inject subq per orders indicate below [] LOW DOSE [] MODERATE DOSE [x] MODERATE/HIGH DOSE [] HIGH DOSE GB UNITS GB UNITS GB UNITS GB UNITS 61-140 0 UNITS 61-140 0 UNITS 61-140 0 UNITS 61-140 0 UNITS 141-175 1 UNITS 141-175 1 UNITS 141-175 2 UNITS 141-175 3 UNITS 176-225 2 UNITS 176-225 3 UNITS 176-225 4 UNITS 176-225 5 UNITS 226-275 3 UNITS 226-275 5 UNITS 226-275 6 UNITS 226-275 7 UNITS 276-325 4 UNITS 276-325 7 UNITS 276-325 8 UNITS 276-325 9 UNITS 326-375 5 UNITS 326-375 9 UNITS 326-375 10 UNITS 326-375 11 UNITS >375 CONTACT MD >375 CONTACT MD >375 CONTACT MD >375 CONTACT MD Custom Dosing: [Choose: Novolog/Humalog] 100 units/ml Insulin inject subq as follows: GB Units 61-140 [] Units 141-175 [] Units 176-225 [] Units 226-275 [] Units 276-325 []Units 326-375 [] Units >375 Contact MD"
--- NOTE | 2018-12-21 10:32 | DISCHARGE SUMMARY ---
"Discharge Summary Admit Date: 12/16/18 Discharge Date: 12/21/18 Discharging Provider: Dr. Alvarenga Primary Care Provider: Ed Carter Code Status: Attempt Resuscitation Condition at Discharge: Good Discharge Disposition: 03 SNF DC/Xfer Discharge Facility Name: To be discharged to [facility] - DIAGNOSES Admission Diagnoses: 1. Mechanical fall from Ground level 2. Left intertrochanteric hip fracture with associated acetabular impingement 3. History of liver transplant/immunocompromised on tacrolimus Next 4. Chronic renal insufficiency 5. Insulin-dependent diabetes mellitus 6. Medical perioperative clearance 7. History of hypersplenism with associated chronic thrombocytopenia and portal HTN 8. Chronic anemia 9. Hypothyroidism Discharge Diagnoses with Status of Each Condition: (1) Pancytopenia, Improved (2) Fracture, intertrochanteric, left femur Status post repair, Stable (3) Anemia-Multifactorial, Status post 2 units PRBCs, stable (4) Chronic Thrombocytopenia, On Decadron, improved (5) Hypothyroidism, Stable (6) DM type 2 (diabetes mellitus, type 2) With steroid-induced hyperglycemia, Stable (7) Liver transplant recipient, On tacrolimus, stable (8) Left lateral lower extremity pain, Improved (9) CKD (chronic kidney disease), Stage II/III, Stable - HPI History of Present Illness: This is a pleasant 68-year-old white male with a past medical history of liver transplant on immunosuppressant therapy with a history of insulin-dependent diabetes, hypertension, hypothyroidism and chronic renal failure. He was on beach picnic during the daytime on 12/16/2018, was walking on the beach, slipped on seaweed and fell on his left side. He suffered a left intertrochanteric hip fracture which was shown on x-ray. At the ER the patient was hemodynamically stable. He had abnormal labs including platelet count of 70 2K, creatinine of 1.8, hemoglobin 9.9, INR 1.2. He was seen by the ER physician Dr. Ponce who coordinated his care. He called the orthopedic surgeon Dr. Tee who would operate on this patient and schedule surgery on the morning of 12/17/2018. Subsequently considering the patient's complex background with liver transplant the patient's fur pointer at the [facility] was called. The case was discussed with ER physician Dr. Fields make sure that this patient could be [facility]. Lab results were reviewed and were found in line with recent baseline numbers. Care was also coordinate with the anesthesiologist who was aware and will also be seen patient for anticipated surgery. Patient reported no prior cardiac work-up no anginal-like symptoms. Patient was medically and cardiac cleared perioperative medical clearance obtained. All his other medical conditions are stable he knows he has chronic kidney disease. Regarding the circumstances of his fall, he did not report any dizziness, lightheadedness, chest pain, shortness of breath prior to or after the fall. It was a mechanical fall as he described it just slipped on the beach. - CONSULTS | PROCEDURES Consultations: Primary auto body repair technician: Dr. Torres @[facility]. Hem/Onc: Dr. Cheung. Dr Tee Procedures: Status post ORIF of left intertrochanteric fracture repair with small nail - HOSPITAL COURSE Hospital Course: Mr. Ludwig Jordan is a pleasant 68-year-old with a history of chronic thro mbocytopenia, anemia, chronic kidney disease, hypersplenism, hypothyroidism, portal hypertension, prior esophageal varices, liver transplant recipient with chronic immunosuppressant tacrolimus who essentially fell on seaweed from ground-level and was found to have a left intertrochanteric fracture with acetabular impingement. Patient was taken to the OR with preoperative medical/cardiac clearance with no acute postoperative complications other than perhaps some mild acute blood loss anemia for which he received 2 units of PRBCs and was found to have worsening thrombocytopenia. Patient did not have upper or lower GI bleeding. However his platelets did go down to approximately 28K from 72K on admission. Patient had primary fur pointer who was consulted at the [facility] and he had mentioned that his tacrolimus should not be discontinued at this was likely related to acute blood loss anemia with hemodilution and should be observed and defer to primary hematology/oncology that patient sees Dr. Coley, Who has suggested that patient be placed on 4- day worth of Decadron for his hypersplenism and if this is refractory and would need to be on IVIG 1 g/kg x 1 dose. Fortunately patient did have increased levels of platelet count and was 63 K prior to discharge with a hemoglobin 8.5 g/dL after receiving 2 units of PRBC. WBC did not go up quite so well and was needing to have Neupogen calculated at 378 mcg (5 mcg/kg), however given 300 mcg x 1 dose. Patient has no evidence of infection. Patient was found to have iron deficiency anemia with some macrocytosis however declining IV iron and ferrous sulfate as patient mentions that this does not work for him. Vitamin B12, folic acid and TSH were unremarkable. Patient had steroid-induced hyperglycemia which was controlled with correctional insulin sliding scale moderate to high as well as basal coverage with glargine uptitrated to 12 units subcu daily. Patient was day #3 Decadron prior to discharge and was postop day #5 of a ORIF with small nail to the left intertrochanteric fracture. Throughout hospitalization patient had increased pain requirements and this was attributable to the promulgated spiral type fracture of the left intertrochanteric fracture which was addressed with a small nail. Orthopedic service had mentioned that this may be knee needing exchange for a long nail if fracture goes past small nail on next hip xray. Patient will continue with 1 more day of Decadron with bolus and basal insulin adjusted to cover for excursions. Patient was accepted at [facility] and will continue with PT/OT as per orthopedic surgery service orders. Patient to resume home medications with the exception of lisinopril due to patient's underlying chronic kidney disease. Pancytopenia has improved and will be followed with CBC every 3 to 4 days along with renal panel. Patient will be given the option of follow-up with a local MD, Tim Carter as patient lives in [place] and would like to see a PCP that is close distance [place] to PCP over in [place] with current PCP Sixto Arango. In addition patient will be scheduled to follow-up with Dr. Tee as scheduled and likely will need an x-ray to see if the spiral pattern fracture has propagated past the small nail is present. - ALLERGIES Allergies/Adverse Reactions: Allergies Allergy/AdvReac Type Severity Reaction Status Date / Time No Known Drug Allergies Allergy Verified 02/12/13 14:25 - MEDICATIONS Home Medications: Ambulatory Orders Medication Instructions Recorded Confirmed Insulin Lispro [Humalog] 6 unit SUBQ TIDWM 12/16/18 12/17/18 Calcium Citrate 250 mg PO DAILY 12/17/18 12/17/18 Levothyroxine Sodium 37.5 mcg PO QDAC 12/17/18 12/17/18 Multivitamin [Theragran] 1 tab PO DAILY 12/17/18 12/17/18 Tacrolimus [Prograf] 0.5 mg PO Q12H 12/17/18 12/17/18 Cyclobenzaprine [Flexeril] 5 mg PO TID PRN tablet 12/21/18 Insulin Aspart [NovoLOG] 2 - 10 unit SUBQ 12/21/18 0800,1200,1700,2100 pen Insulin Glargine [Lantus Solostar] 12 unit SUBQ QPM pen 12/21/18 Pantoprazole [Protonix] 40 mg PO QDAC tablet 12/21/18 Polyethylene Glycol 3350 [Miralax] 17 gm PO DAILY packet 12/21/18 Pregabalin [Lyrica] 25 mg PO BID #40 capsule 12/21/18 Senna [Senokot] 17.2 mg PO Q12H PRN tablet 12/21/18 Zolpidem [Ambien] 5 mg PO QPM PRN tablet 12/21/18 dexAMETHasone [Decadron] 4 mg PO BIDWM 1 Days #2 tablet 12/21/18 oxyCODONE [Roxicodone] 5 mg PO Q4HR PRN #40 tablet 12/21/18 - PHYSICAL EXAM AT DISCHARGE General Appearance: positive: No acute distress, Alert, Anxious Eyes Bilateral: positive: Normal inspection, PERRL, EOMI ENT: positive: ENT inspection nml, Pharynx nml, No signs of dehydration Neck: positive: Nml inspection, Thyroid nml, No JVD, Trachea midline Respiratory: positive: Chest non-tender, No respiratory distress, Breath sounds nml Cardiovascular: positive: Regular rate & rhythm, No murmur, No gallop Peripheral Pulses: positive: 2+ Abdomen: positive: Non-tender, No organomegaly, Nml bowel sounds, No distention Back: positive: Nml inspection Skin: positive: Color nml, No rash, Warm Extremities: positive: Nml appearance, Other (Left incisional site is clean dry and intact). negative: Pedal edema, Joint swelling, Dave's sign/cords Neurologic/Psychiatric: positive: Oriented x3, CN's nml (2-12) - LABS Result Diagrams: 12/21/18 05:05 12/21/18 05:05 - DIAGNOSTIC IMAGING Diagnostic Imaging Results: Final report reviewed - FOLLOW UP Follow Up: We will follow-up with a new appointment with Tim Carter in 1 or 2 weeks. Follow-up with Dr. Tee as scheduled. - TIME SPENT Time Spent in Discharge (Minutes): 35"
--- NOTE | 2018-12-21 12:07 | PROVIDER PROGRESS NOTE ---
Subjective - Prog Note Date Prog Note Date: 12/21/18 Prog Note Time: 12:05 - Subjective Pt reports feeling: Improved (Less pain. More indepence in mobility. Walker ambulating in room) Objective - Vital Signs/Intake & Output Vital Signs: Vital Signs x48h Temp Pulse Resp BP Pulse Ox 12/21/18 07:50 36.2 C L 55 L 18 122/66 98 Intake & Output: Intake & Output 12/18/18 12/19/18 12/20/18 12/21/18 23:59 23:59 23:59 23:59 Intake Total 4186.667 2306 2610 340 Output Total 1750 1550 850 350 Balance 2436.704 218 7775 -10 - Lab Results Fish Bones: 12/21/18 05:05 12/21/18 05:05 Other Labs: Lab Results x24hrs 12/21/18 12/21/18 Range/Units 05:05 05:05 WBC 2.0 L* (4.8-10.8) x10^3/uL RBC 2.82 L (4.70-6.10) 10^6/uL Hgb 8.5 L (14.0-18.0) g/dL Hct 25.5 L (42.0-52.0) % MCV 90.4 (80.0-94.0) fL MCH 30.1 (27.0-31.0) pg MCHC 33.4 (32.0-36.0) g/dL RDW 15.5 H (12.0-15.0) % Plt Count 63 L (130-450) 10^3/uL MPV 9.5 (7.4-11.4) fL Neut # (Auto) 1.8 (1.5-6.6) 10^3/uL Lymph # (Auto) 0.1 L (1.5-3.5) 10^3/uL Duchesne # (Auto) 0.1 (0.0-1.0) 10^3/uL Eos # (Auto) 0.0 (0.0-0.7) 10^3/uL Baso # (Auto) 0.0 (0.0-0.1) 10^3/uL Absolute Nucleated RBC 0.00 x10^3/uL Band Neuts % (Manual) Not Reportable Abnorm Lymph % (Manual) Not Reportable Nucleated RBC % 0.1 /100WBC Neutrophils # (Manual) Not Reportable Lymphocytes # (Manual) Not Reportable Monocytes # (Manual) Not Reportable Eosinophils # (Manual) Not Reportable Basophils # (Manual) Not Reportable Differential Comment MANUAL=AUTO DIFF Platelet Estimate DECREASED (<130,000) (NORMAL) RBC Morph Micro Appear NORMAL APPEARANCE (NORMAL) Sodium 136 (135-145) mmol/L Potassium 4.2 (3.5-5.0) mmol/L Chloride 104 (101-111) mmol/L Carbon Dioxide 21 (21-32) mmol/L Anion Gap 11.0 (6-13) BUN 45 H (6-20) mg/dL Creatinine 1.6 H (0.6-1.2) mg/dL Estimated GFR (MDRD) 43 L (>89) Glucose 204 H (70-100) mg/dL Calcium 8.1 L (8.5-10.3) mg/dL Phosphorus 2.4 L (2.5-4.6) mg/dL Albumin 2.9 L (3.2-5.5) g/dL - Other Results/Comments Other Results/Comments: EXAM: Wound dressing intact. Mild lateral hiop tenderness. Mild pain with hip motion. N/V ok distally Assessment/Plan - Problem List (1) Fracture, intertrochanteric, left femur Impression: Satis post op PLAN: No change in PT and mobilization. To SNF today. Follow up in 2 weeks in clinic for SR and new XR. Qualifiers: Encounter type: initial encounter Fracture type: closed Fracture alignment: nondisplaced Qualified Code(s): S72.145A - Nondisplaced intertrochanteric fracture of left femur, initial encounter for closed fracture
[2018-12-21 15:24] VITALS: BP 112/56
== END 2018-12-21 15:55 | DRG 481 ==
LOC: ED 18:05 → MS2 19:51
PROVIDERS: ADMIT Internal Medicine; ATTEND Family Medicine
PROC: 0QS736Z Reposition Left Upper Femur with Intramedullary Internal Fixation Device, Percutaneous Approach (ICD-10-PCS; principal; 2018-12-17 09:30)
PROC: 30233R1 Transfusion of Nonautologous Platelets into Peripheral Vein, Percutaneous Approach (ICD-10-PCS; 2018-12-19)
PROC: 30233N1 Transfusion of Nonautologous Red Blood Cells into Peripheral Vein, Percutaneous Approach (ICD-10-PCS; 2018-12-19)
DX: S72.145A Nondisplaced intertrochanteric fracture of left femur, initial encounter for closed fracture (principal); D62 Acute posthemorrhagic anemia; K76.6 Portal hypertension; M21.852 Other specified acquired deformities of left thigh; E11.9 Type 2 diabetes mellitus without complications; Z94.4 Liver transplant status; D61.818 Other pancytopenia; G89.18 Other acute postprocedural pain; W01.0XXA Fall on same level from slipping, tripping and stumbling without subsequent striking against object, initial encounter; Y93.01 Activity, walking, marching and hiking; Y92.832 Beach as the place of occurrence of the external cause; E11.65 Type 2 diabetes mellitus with hyperglycemia; T38.0X5A Adverse effect of glucocorticoids and synthetic analogues, initial encounter; Y92.230 Patient room in hospital as the place of occurrence of the external cause; E11.22 Type 2 diabetes mellitus with diabetic chronic kidney disease; I12.9 Hypertensive chronic kidney disease with stage 1 through stage 4 chronic kidney disease, or unspecified chronic kidney disease; N18.3 Chronic kidney disease, stage 3 (moderate); D73.1 Hypersplenism; D50.9 Iron deficiency anemia, unspecified; E03.9 Hypothyroidism, unspecified; Z79.899 Other long term (current) drug therapy; Z79.4 Long term (current) use of insulin; Z86.79 Personal history of other diseases of the circulatory system
CPT/HCPCS: 36415; 73502; 73552; 76882; 80053; 80069; 82607; 82746; 83036; 83540; 83690; 84466; 85025; 85610; 86850; 86870; 86900; 86901; 86922; 93005; 96374; 97162; 97166; 97530; 99283; 99285; A9270; C1713; J0131; J0690; J1170; J1815; J7120; J8540; P9016; P9037; Q5101; 99284

== ENCOUNTER 2019-01-10 08:30 | Outpatient (CLI) | payer MEDICARE, OTHER | END 2019-01-10 08:31 | disposition short-term general hospital (02) | LOC: EMS 08:30 | PROVIDERS: ATTEND Surgery | DX: R60.9 Edema, unspecified (principal) | CPT/HCPCS: A0425; A0427 ==

== ENCOUNTER 2019-01-18 08:00 | Outpatient (CLI) | payer MEDICARE, OTHER ==
[2019-01-18 18:08] LABS: EOSINOPHILS % (AUTO) 1.2 %; HGB - HEMOGLOBIN 8.7 g/dL (14.0-18.0); LYMPHOCYTES # (AUTO) 0.2 10^3/uL (1.5-3.5); LYMPHOCYTES % (AUTO) 7.1 %; MEAN CORPUSCULAR HEMOGLOBIN 30.1 pg (27.0-31.0); MEAN CORPUSCULAR HGB CONC 32.1 g/dL (32.0-36.0); MEAN CORPUSCULAR VOLUME 93.8 fL (80.0-94.0); MEAN PLATELET VOLUME 11.9 fL (7.4-11.4); MONOCYTES # (AUTO) 0.2 10^3/uL (0.0-1.0); MONOCYTES % (AUTO) 7.1 %; NEUTROPHILS # (AUTO) 2.9 10^3/uL (1.5-6.6); NEUTROPHILS % (AUTO) 84.3 %; PLT - PLATELET COUNT 58 10^3/uL (130-450); RED BLOOD COUNT 2.89 10^6/uL (4.70-6.10); RED CELL DISTRIBUTION WIDTH 15.2 % (12.0-15.0); WHITE BLOOD COUNT 3.4 x10^3/uL (4.8-10.8)
== END 2019-01-18 08:01 | disposition home or self-care (01) ==
LOC: LAB.R 08:00
DX: R79.89 Other specified abnormal findings of blood chemistry (principal); I82.409 Acute embolism and thrombosis of unspecified deep veins of unspecified lower extremity
CPT/HCPCS: 85025

== ENCOUNTER 2019-01-29 10:25 | Outpatient (CLI) | payer MEDICARE, OTHER | END 2019-01-29 10:26 | disposition home or self-care (01) | LOC: LAB.S 10:25 | PROVIDERS: ATTEND Internal Medicine Gastroenterology | DX: Z94.4 Liver transplant status (principal); Z79.01 Long term (current) use of anticoagulants; I82.409 Acute embolism and thrombosis of unspecified deep veins of unspecified lower extremity; Z48.298 Encounter for aftercare following other organ transplant; Z79.899 Other long term (current) drug therapy | CPT/HCPCS: 85610 ==

== ENCOUNTER 2019-02-09 | Outpatient (CLI) | payer MEDICARE, OTHER | END 2019-02-09 11:09 | disposition home or self-care (01) ==

== ENCOUNTER 2019-02-14 11:28 | Outpatient (CLI) | payer MEDICARE, OTHER | END 2019-02-14 11:29 | disposition home or self-care (01) | LOC: LAB.S 11:28 | PROVIDERS: ATTEND Pharmacist | DX: I82.409 Acute embolism and thrombosis of unspecified deep veins of unspecified lower extremity (principal); Z79.01 Long term (current) use of anticoagulants | CPT/HCPCS: 85610 ==

== ENCOUNTER 2019-02-22 10:48 | Outpatient (CLI) | payer MEDICARE, OTHER | END 2019-02-22 10:49 | disposition home or self-care (01) | LOC: LAB.S 10:48 | PROVIDERS: ATTEND Pharmacist | DX: Z79.01 Long term (current) use of anticoagulants (principal); I82.409 Acute embolism and thrombosis of unspecified deep veins of unspecified lower extremity | CPT/HCPCS: 85610 ==

== ENCOUNTER 2019-03-01 11:28 | Outpatient (CLI) | payer MEDICARE, OTHER | END 2019-03-01 11:29 | disposition home or self-care (01) | LOC: LAB.S 11:28 | PROVIDERS: ATTEND Pharmacist | DX: Z79.01 Long term (current) use of anticoagulants (principal); I82.409 Acute embolism and thrombosis of unspecified deep veins of unspecified lower extremity | CPT/HCPCS: 85610 ==

== ENCOUNTER 2019-03-14 13:52 | Outpatient (CLI) | payer MEDICARE, OTHER | END 2019-03-14 13:53 | disposition home or self-care (01) | LOC: LAB.S 13:52 | PROVIDERS: ATTEND Pharmacist | DX: I82.409 Acute embolism and thrombosis of unspecified deep veins of unspecified lower extremity (principal); Z79.01 Long term (current) use of anticoagulants | CPT/HCPCS: 85610 ==

== ENCOUNTER 2019-04-13 13:55 | Outpatient (CLI) | payer MEDICARE, OTHER | END 2019-04-13 13:56 | disposition home or self-care (01) | LOC: LAB.S 13:55 | PROVIDERS: ATTEND Pharmacist | DX: Z79.01 Long term (current) use of anticoagulants (principal); I82.409 Acute embolism and thrombosis of unspecified deep veins of unspecified lower extremity | CPT/HCPCS: 85610 ==

== ENCOUNTER 2019-06-29 08:00 | Outpatient (CLI) | payer MEDICARE, OTHER ==
[2019-06-29 19:02] LABS: HB2 TOTAL 9.8 g/dL; HEMOGLOBIN A1C 0.51 g/dL; HEMOGLOBIN A1C % 6.9 % (4.6-6.2)
== END 2019-06-29 23:59 | disposition home or self-care (01) ==
LOC: LAB.S 08:00
PROVIDERS: ATTEND Internal Medicine Gastroenterology
DX: E11.9 Type 2 diabetes mellitus without complications (principal); Z79.4 Long term (current) use of insulin; E03.9 Hypothyroidism, unspecified; Z94.4 Liver transplant status; Z48.298 Encounter for aftercare following other organ transplant; Z79.899 Other long term (current) drug therapy
CPT/HCPCS: 36415; 80048; 80076; 80197; 82977; 83036; 83735; 84100; 84443; 85025; 85610

== ENCOUNTER 2020-11-11 15:21 | Outpatient (CLI) | payer MEDICARE, OTHER ==
[2020-11-11 20:38] LABS: THYROID STIMULATING HORMONE 4.3 uIU/mL (0.34-5.60)
[2020-11-11 20:39] LABS: FREE T4 (FREE THYROXINE) 0.98 ng/dL (0.58-1.64)
[2020-11-11 20:40] LABS: ESTIMATED AVERAGE GLUCOSE 146 mg/dL (70-100); HEMOGLOBIN A1c% 6.7 % (4.27-6.07)
== END 2020-11-11 15:22 | disposition home or self-care (01) ==
LOC: LAB.S 15:21
PROVIDERS: ATTEND Nurse Practitioner
DX: E11.21 Type 2 diabetes mellitus with diabetic nephropathy (principal); Z79.4 Long term (current) use of insulin
CPT/HCPCS: 36415; 83036; 84439; 84443

== ENCOUNTER 2021-05-04 13:54 | Outpatient (CLI) | payer MEDICARE, OTHER ==
[2021-05-04 21:02] LABS: THYROID STIMULATING HORMONE 2.2 uIU/mL (0.34-5.60)
[2021-05-04 21:25] LABS: ESTIMATED AVERAGE GLUCOSE 154 mg/dL (70-100)
== END 2021-05-04 13:55 | disposition home or self-care (01) ==
LOC: LAB.S 13:54
PROVIDERS: ATTEND Internal Medicine Endocrinology, Diabetes & Metabolism
DX: E11.21 Type 2 diabetes mellitus with diabetic nephropathy (principal); Z79.4 Long term (current) use of insulin
CPT/HCPCS: 36415; 83036; 84443

== ENCOUNTER 2022-05-10 11:38 | Outpatient (CLI) | payer MEDICARE, OTHER ==
[2022-05-10 14:43] LABS: BASOPHILS % (AUTO) 0.5 %; EOSINOPHILS # (AUTO) 0.2 10^3/uL (0.0-0.7); EOSINOPHILS % (AUTO) 5.3 %; HCT - HEMATOCRIT 26.9 % (42.0-52.0); HGB - HEMOGLOBIN 8.5 g/dL (14.0-18.0); LYMPHOCYTES # (AUTO) 0.3 10^3/uL (1.5-3.5); LYMPHOCYTES % (AUTO) 7.2 %; MEAN CORPUSCULAR HEMOGLOBIN 30.8 pg (27.0-31.0); MEAN CORPUSCULAR HGB CONC 31.6 g/dL (32.0-36.0); MEAN CORPUSCULAR VOLUME 97.5 fL (80.0-94.0); MEAN PLATELET VOLUME 12.1 fL (7.4-11.4); MONOCYTES # (AUTO) 0.2 10^3/uL (0.0-1.0); MONOCYTES % (AUTO) 5.3 %; NEUTROPHILS # (AUTO) 3.1 10^3/uL (1.5-6.6); NEUTROPHILS % (AUTO) 81.4 %; PLT - PLATELET COUNT 67 10^3/uL (130-450); RED BLOOD COUNT 2.76 10^6/uL (4.70-6.10); RED CELL DISTRIBUTION WIDTH 13.4 % (12.0-15.0); WHITE BLOOD COUNT 3.8 x10^3/uL (4.8-10.8)
[2022-05-10 15:14] LABS: CHOL/HDL RATIO 4.2 (<5.0); CHOLESTEROL 122 mg/dL; HDL CHOLESTEROL 29 mg/dL; LDL CHOLESTEROL,CALCULATED 64 mg/dL; LDL/HDL RATIO 2.2 (<3.6); TRIGLYCERIDES 146 mg/dL; VLDL CHOLESTEROL 29 mg/dL
[2022-05-10 15:15] LABS: THYROID STIMULATING HORMONE 4.28 uIU/mL (0.34-5.60)
[2022-05-10 15:17] LABS: FREE T3 2.7 pg/mL (2.5-3.9); FREE T4 (FREE THYROXINE) 0.91 ng/dL (0.58-1.64)
[2022-05-10 20:01] LABS: CREATININE,URINE 90.5 mg/dL; MICROALBUM/CREATININE RATIO,UR 5.5 ug/mg (<30.0); MICROALBUMIN,URINE 0.5 mg/dL (0-300.0)
[2022-05-10 21:14] LABS: ESTIMATED AVERAGE GLUCOSE 171 mg/dL (70-100); HEMOGLOBIN A1c% 7.6 % (4.27-6.07)
== END 2022-05-10 11:39 | disposition home or self-care (01) ==
LOC: LAB.S 11:38
PROVIDERS: ATTEND Internal Medicine Endocrinology, Diabetes & Metabolism
DX: E11.65 Type 2 diabetes mellitus with hyperglycemia (principal); Z79.4 Long term (current) use of insulin
CPT/HCPCS: 36415; 80061; 82043; 82570; 83036; 83721; 84439; 84443; 84481; 85025

== ENCOUNTER 2023-05-02 14:31 | Outpatient (CLI) | payer MEDICARE, OTHER ==
[2023-05-02 20:02] LABS: BASOPHILS % (AUTO) 0.9 %; EOSINOPHILS # (AUTO) 0.3 10^3/uL (0.0-0.7); EOSINOPHILS % (AUTO) 7.7 %; HCT - HEMATOCRIT 33.1 % (42.0-52.0); HGB - HEMOGLOBIN 10.4 g/dL (14.0-18.0); LYMPHOCYTES # (AUTO) 0.4 10^3/uL (1.5-3.5); LYMPHOCYTES % (AUTO) 12.6 %; MEAN CORPUSCULAR HEMOGLOBIN 30.1 pg (27.0-31.0); MEAN CORPUSCULAR HGB CONC 31.4 g/dL (32.0-36.0); MEAN CORPUSCULAR VOLUME 95.7 fL (80.0-94.0); MEAN PLATELET VOLUME 11.6 fL (7.4-11.4); MONOCYTES # (AUTO) 0.2 10^3/uL (0.0-1.0); MONOCYTES % (AUTO) 4.9 %; NEUTROPHILS # (AUTO) 2.4 10^3/uL (1.5-6.6); NEUTROPHILS % (AUTO) 73.9 %; PLT - PLATELET COUNT 53 10^3/uL (130-450); RED BLOOD COUNT 3.46 10^6/uL (4.70-6.10); RED CELL DISTRIBUTION WIDTH 14.6 % (12.0-15.0); WHITE BLOOD COUNT 3.3 x10^3/uL (4.8-10.8)
[2023-05-02 20:13] LABS: ALBUMIN/GLOBULIN RATIO 1.4 (1.0-2.2); BILIRUBIN,TOTAL 0.9 mg/dL (0.2-1.0); CALCIUM 9.4 mg/dL (8.5-10.3); CREATININE 2.1 mg/dL (0.6-1.3); POTASSIUM 4.4 mmol/L (3.5-4.5); TOTAL PROTEIN 6.8 g/dL (6.4-8.9)
[2023-05-02 20:29] LABS: FERRITIN 101.1 ng/mL (23.9-336.2)
== END 2023-05-02 14:32 | disposition home or self-care (01) ==
LOC: LAB.S 14:31
PROVIDERS: ATTEND Internal Medicine Hematology & Oncology
DX: N18.9 Chronic kidney disease, unspecified (principal)
CPT/HCPCS: 36415; 80053; 82728; 83540; 83615; 84466; 85025